=== PATIENT | female | born 1940 | race Caucasian/White ===

== ENCOUNTER → 2017-04-27 | Outpatient (CLI) | payer MEDICARE, BC ==
--- NOTE | 2017-04-28 11:30 | MM ---
Reason for exam: screening (asymptomatic). Last mammogram was performed 4 years and 1 month ago. History: Patient is postmenopausal, has history of bilateral breast cancer at age 41, and history of other cancer. Benign excisional biopsy of the left breast. Physical Findings: A clinical breast exam by your physician is recommended on an annual basis and results should be correlated with mammographic findings. MG 3D Screening Mammo W/Cad Bilateral CC and MLO view(s) were taken. Prior study comparison: March 27, 2013, mammogram, performed at [facility]. March 03, 2011, mammogram, performed at [facility]. The breast tissue is heterogeneously dense. This may lower the sensitivity of mammography. There is a 9mm mass of lower inner quadrant left breast and adjacent 4mm mass. Further work up needed. ASSESSMENT: Incomplete: need additional imaging evaluation, BI-RAD 0 RECOMMENDATION: Special view mammogram of the left breast. If lesion persists on supplemental views, image directed ultrasound is recommended. [facility] will attempt to contact patient to return for supplemental views and ultrasound if indicated.
== END | disposition home or self-care (01) ==
LOC: RADMAMWWP 15:45
PROVIDERS: ATTEND Family Medicine
DX: Z12.31 Encounter for screening mammogram for malignant neoplasm of breast (principal)
CPT/HCPCS: 77063; G0202

== ENCOUNTER → 2017-05-04 | Outpatient (CLI) | payer MEDICARE, BC ==
--- NOTE | 2017-05-05 08:32 | MM ---
Reason for exam: additional evaluation requested from abnormal screening. Last mammogram was performed less than 1 month ago. History: Patient is postmenopausal, has history of bilateral breast cancer at age 41, and history of other cancer. Lumpectomy of the right breast, 1980. Benign excisional biopsy of the left breast. Physical Findings: Nurse did not find any significant physical abnormalities on exam. MG 3D Work Up W/Cad LT Spot compression CC, spot compression MLO, and LM view(s) were taken of the left breast. Prior study comparison: April 27, 2017, bilateral MG 3d screening mammo w/cad. March 27, 2013, mammogram, performed at [facility]. The breast tissue is heterogeneously dense. This may lower the sensitivity of mammography. Abnormality appears as fibroglandular tissue on additional views. Precautionary ultrasound was performed in lower inner quadrant on left breast. These results were verbally communicated with the patient and result sheet given to the patient on 05/04/17. ASSESSMENT: Incomplete: need additional imaging evaluation, BI-RAD 0 RECOMMENDATION: Ultrasound of the left breast. (2cm from nipple)
--- NOTE | 2017-05-05 08:45 | USB ---
Reason for exam: additional evaluation requested from abnormal screening. History: Patient is postmenopausal, has history of bilateral breast cancer at age 41, and history of other cancer. Lumpectomy of the right breast, 1980. Benign excisional biopsy of the left breast. US Breast Workup Limited LT Left breast ultrasound demonstrates no cystic or solid lesion seen. No sonographic cystic or solid mass. No suspicious abnormality. These results were verbally communicated with the patient and result sheet given to the patient on 05/04/17. ASSESSMENT: Negative, BI-RAD 1 RECOMMENDATION: Return to routine screening mammogram schedule for both breasts.
== END | disposition home or self-care (01) ==
LOC: RADMAMWWP 12:51
PROVIDERS: ATTEND Family Medicine
DX: R92.8 Other abnormal and inconclusive findings on diagnostic imaging of breast (principal)
CPT/HCPCS: 76642; G0206; G0279

== ENCOUNTER → 2017-05-18 | Outpatient (CLI) | payer MEDICARE, BC ==
[2017-05-18 19:09] LABS: Basophils % (A) 0 %; CHCM 34.4; Eosinophils # (A) 0.2 k/uL (0-0.7); Eosinophils % (A) 4 %; HCT 41.4 % (34.0-46.0); HDW 2.48; HGB 14.3 gm/dL (11.4-16.0); Luc # (Auto) 0.08; Luc % (Auto) 1; Lymphocytes # (A) 1.3 k/uL (1.0-4.8); Lymphocytes % (A) 20 %; MCH 31.3 pg (25.0-35.0); MCHC 34.5 g/dL (31.0-37.0); MCV 90.7 fL (80.0-100.0); Mean Platelet Volume 7.3; Monocytes # (A) 0.5 k/uL (0-1.0); Monocytes % (A) 7 %; Neutrophils # (A) 4.3 k/uL (1.3-7.7); Neutrophils % (A) 68 %; RBC 4.57 m/uL (3.80-5.40); RDW 12.6 % (11.5-15.5); WBC 6.3 k/uL (3.8-10.6); WBC (Perox) 6.82
[2017-05-18 19:14] LABS: ALT 54 U/L (9-52); AST 36 U/L (14-36); Alkaline Phosphatase 77 U/L (38-126); Anion Gap 12 mmol/L; Blood Urea Nitrogen 25 mg/dL (7-17); Calcium 9.9 mg/dL (8.4-10.2); Carbon Dioxide 21 mmol/L (22-30); Chloride 105 mmol/L (98-107); Cholesterol 213 mg/dL (<200); Glucose 94 mg/dL (74-99); HDL Cholesterol 102 mg/dL (40-60); Non-African American GFR(MDRD) >60 (>60 ml/min/1.73 sqM); Potassium 4.2 mmol/L (3.5-5.1); Sodium 138 mmol/L (137-145); Total Bilirubin 0.6 mg/dL (0.2-1.3); Total Protein 6.9 g/dL (6.3-8.2)
== END ==
LOC: MMGSC 15:00
PROVIDERS: ATTEND Family Medicine
DX: M79.7 Fibromyalgia (principal)
CPT/HCPCS: 36415; 80053; 80061; 84439; 84443; 85025

== ENCOUNTER 2017-07-12 08:36 | Day surgery (SDC) | payer MEDICARE, BC ==
[2017-07-11 12:02] VITALS: BMI 26.9
[~2017-07-12 08:36] MED LIST: LACTATED RINGERS 1,000 ML IV SCH; LIDOCAINE 1% 20 ML VIAL (10MG/ML) FOR IV START INTRADERMA PRN
[2017-07-12 09:31] VITALS: TEMP 97.9
[2017-07-12] MEDS ORDERED: LIDOCAINE 1% INJ 10MG/ML (20 ML MDV) ONE (09:52)
[2017-07-12] MEDS ORDERED: PROPOFOL 10 MG/ML 20 ML VIAL IV ONE (09:52)
--- NOTE | 2017-07-12 10:18 | P.PCN ---
Date of Procedure: 07/12/17 Procedure(s) Performed: Procedure: Total colonoscopy. Preoperative diagnosis: Screening for neoplasia, patient has history of polyps. Postoperative diagnosis: Sigmoid diverticulosis with no evidence of acute diverticulitis, strictures, polyps or cancer. Preparation: HalfLytely prep. Sedation: Was provided by anesthesia. Brief clinical history: The patient is a 77-year-old female who is referred for this evaluation for screening for neoplasia age being her risk factor as well as history of polyps. There is no family history of colon cancer. The patient has no abdominal complaints, bleeding or anemia. Her last colonoscopy was around 6 years ago. Procedure: With the patient on her left lateral decubitus position and after informed consent and adequate sedation, the perianal area was inspected and it did not show any fissures or fistulas. There were no masses felt on digital rectal examination. The Olympus CFQ 160L video colonoscope was then inserted in the rectum in the usual fashion and advanced to the cecum. The mucosa appeared healthy. There were multiple diverticular orifices seen scattered in the sigmoid with no evidence of acute diverticulitis or strictures. No polyps or tumors were seen. I retroflexed the endoscope in the rectum before the endoscope was withdrawn. The patient tolerated the procedure well. Plan: The patient was reassured. Discussed dietary measures. She'll follow-up with you as planned. I recommended a repeat exam in 5 years depending on her overall health at that time.
[2017-07-12 10:21] VITALS: PULSE 79; RESP 16
[2017-07-12 10:54] VITALS: BP 151/72
== END 2017-07-12 11:27 | disposition home or self-care (01) ==
LOC: ORWHC2ENDO 08:36
DX: Z12.11 Encounter for screening for malignant neoplasm of colon (principal); Z86.010 Personal history of colon polyps; K57.30 Diverticulosis of large intestine without perforation or abscess without bleeding; E07.9 Disorder of thyroid, unspecified; Z85.3 Personal history of malignant neoplasm of breast; C67.9 Malignant neoplasm of bladder, unspecified; M79.7 Fibromyalgia; G62.9 Polyneuropathy, unspecified; Z79.899 Other long term (current) drug therapy; Z79.51 Long term (current) use of inhaled steroids
CPT/HCPCS: J2001; J2704; G0105

== ENCOUNTER → 2017-07-25 | Outpatient (CLI) | payer MEDICARE, BC | END | disposition home or self-care (01) | LOC: MMGSC 15:23 | PROVIDERS: ATTEND Family Medicine | DX: E03.9 Hypothyroidism, unspecified (principal) | CPT/HCPCS: 36415; 84439; 84443 ==

== ENCOUNTER → 2018-02-14 | Outpatient (CLI) | payer MEDICARE, BC ==
--- NOTE | 2018-02-22 09:34 | P.ARTDOP ---
Arterial Doppler LOWER EXTREMITY ARTERIAL DOPPLER: DATE OF SERVICE: 02/14/2018 Reason for study: Bilateral leg pain. Doppler waveforms: Multiphasic bilaterally throughout. Pulse volume recording: []. Pressure gradients: None. Ankle-brachial indices: Greater than 1 bilaterally. Toe pressures: [] on the right, [] on the left Impression: Normal study.
== END | disposition home or self-care (01) ==
LOC: RADUSWWP 11:48
PROVIDERS: ATTEND Family Medicine
DX: R23.0 Cyanosis (principal); M79.661 Pain in right lower leg; M79.662 Pain in left lower leg
CPT/HCPCS: 93922

== ENCOUNTER → 2018-04-24 | Outpatient (CLI) | payer MEDICARE, BC ==
--- NOTE | 2018-04-24 15:23 | MR ---
MRI CERVICAL SPINE: CLINICAL HISTORY: Neck pain (M 54.2) per order. Headache and neck pain for years causing pain or weak ness into both arms and fingers per patient. TECHNIQUE: Multiplanar, multisequence imaging of the cervical spine is performed without IV contrast. COMPARISON: None. FINDINGS: Exam is noted suboptimal as is degraded by patient motion artifact. There is levoconvex sco liosis centered in the upper thoracic spine on coronal images. Sagittal images of the cervical spine show the craniocervical junction to appear within normal limits. The cervical and upper thoracic spi nal cord is normal in course, caliber, and signal. The vertebral body heights are normal. Small Schmo rl node superior C7 endplate is seen. There is mild disc space narrowing C4-C5 and C5-C6 levels. Post erior disc herniation noted C5-C6 level on sagittal image 8. Mild to moderate multilevel anterior spu rring is present The bone marrow signal intensity shows overall heterogeneity. Axial images show the C2-C3 level to appear within normal limits. Axial images at C3-C4 level show uncovertebral facet degenerative changes bilaterally contributing to mild right greater than left bilateral neural foraminal narrowing. Axial images at the C4-C5 level show broad-based central disc protrusion mildly effacing anterior the joshua sac with uncovertebral facet degenerative changes causing moderate to severe left and mild right- sided neural foraminal narrowing. Axial images at the C5-C6 level show broad-based right paracentral disc protrusion axial image 22 eff acing anterolateral thecal sac nearly up to ventral surface of spinal cord with uncovertebral facet d egenerative changes bilaterally causing moderate left and moderate to advanced right-sided neural for aminal narrowing. Axial images at the C6-C7 and C7-T1 levels are felt within normal limits. IMPRESSION: Scoliosis and multilevel degenerative changes most prominent C5-C6 level as detailed jacey swift
== END | disposition home or self-care (01) ==
LOC: RADMRIMAIN 14:38
PROVIDERS: ATTEND Family Medicine
DX: M47.812 Spondylosis without myelopathy or radiculopathy, cervical region (principal); M41.82 Other forms of scoliosis, cervical region
CPT/HCPCS: 72141

== ENCOUNTER → 2018-07-24 | Outpatient (CLI) | payer MEDICARE, BC ==
--- NOTE | 2018-07-25 13:16 | MM ---
Reason for exam: screening (asymptomatic). Last mammogram was performed 1 year and 3 months ago. History: Patient is postmenopausal, has history of bilateral breast cancer at age 41, and history of other cancer. Lumpectomy of the right breast, 1980. Benign excisional biopsy of the left breast. Physical Findings: A clinical breast exam by your physician is recommended on an annual basis and results should be correlated with mammographic findings. MG 3D Screening Mammo W/Cad Bilateral CC and MLO view(s) were taken. Prior study comparison: May 04, 2017, left breast MG 3d work up w/cad LT. April 27, 2017, bilateral MG 3d screening mammo w/cad. The breast tissue is heterogeneously dense. This may lower the sensitivity of mammography. No suspicious abnormality. Left post surgical change. No significant changes when compared with prior studies. ASSESSMENT: Benign, BI-RAD 2 RECOMMENDATION: Routine screening mammogram of both breasts in 1 year. Supplementation with annual high risk screening MRI is recommended in this BRCA positive patient.
== END ==
LOC: RADMAMWWP 16:42
PROVIDERS: ATTEND Family Medicine
DX: Z12.31 Encounter for screening mammogram for malignant neoplasm of breast (principal)
CPT/HCPCS: 77063; 77067

== ENCOUNTER 2018-10-31 08:38 | Day surgery (SDC) | payer MEDICARE, BC ==
[2018-10-26 16:19] VITALS: BMI 28.0
[~2018-10-31 08:38] MED LIST changes: -LIDOCAINE 1% 20 ML VIAL (10MG/ML) FOR IV START INTRADERMA PRN
[2018-10-31 09:04] VITALS: TEMP 97
[2018-10-31] MEDS ORDERED: PROPOFOL 10 MG/ML 20 ML VIAL IV ONE (09:14)
[2018-10-31] MEDS ORDERED: LIDOCAINE 1% INJ 10MG/ML (20 ML MDV) ONE (09:14)
[2018-10-31 09:42] VITALS: RESP 16
--- NOTE | 2018-10-31 09:46 | P.PCN ---
Date of Procedure: 10/31/18 Procedure(s) Performed: Procedure: Esophagogastroduodenoscopy and biopsy. Preoperative diagnosis: Gastroesophageal reflux disease. Postoperative diagnosis: 1. Hiatal hernia and LA grade B distal esophagitis. 2. Antral gastritis. 3. Biopsies obtained from the duodenum, antrum and esophagus. Preparation and sedation: Was provided by anesthesia. Brief clinical history: The patient is a 78-year-old female with chronic reflux symptoms and history of hiatal hernia. The patient has been taking Tums on as- needed basis. She started to have significant reflux and dysphagia around 2 months ago. She was started on omeprazole. Her heartburn has improved but she still feels that she can't eat a full meal or drink a lot of fluid. No stool during a recent pneumonia. This evaluation is to assess for complicated reflux disease or other pathology. Procedure: With the patient on her left lateral decubitus position and after informed consent and adequate sedation, I passed the Olympus-GIF H 190 video upper endoscope through the cricopharyngeus down the esophagus. GE junction was around 36 cm from the incisors and there was a 2-3 cm sliding hiatal hernia. At the level of the GE junction there was a wide B ring, and the distal esophagus showed broad erosion consistent with LA grade B distal esophagitis. No Alonso's esophagus, mucosal tears or bleeding. The endoscope was then passed into the stomach which was insufflated with air and inspected in detail including the retroflex view in the cardia. There was mottling, erythema and edema in the antrum and multiple erosions and small ulcerations but no bleeding or gastric outlet obstruction. Pyloric channel, duodenal bulb, post bulbar area and descending duodenum appeared within normal limits. I obtained biopsies from the duodenum, antrum and esophagus then the endoscope was withdrawn. The patient tolerated the procedure well. Plan: The patient was reassured. Discussed dietary measures. She will continue with the acid suppressive therapy. Further plans can be made based on her course. With the finding of hiatal hernia and her need for antacids for a long time in the past, it is likely that she would need some acid suppressive therapy long-term after the healing of her esophagitis and that could be accomplished with H2 blockers as well. I would be happy to see her in the future if needed. She will follow-up with you as planned.
[2018-10-31 09:56] VITALS: BP 152/75; PULSE 70
== END 2018-10-31 10:27 | disposition home or self-care (01) ==
LOC: ORWHC2ENDO 08:38
DX: K44.9 Diaphragmatic hernia without obstruction or gangrene (principal); K22.10 Ulcer of esophagus without bleeding; K29.50 Unspecified chronic gastritis without bleeding
CPT/HCPCS: 43239; 88305; 88312; J2001; J2704

== ENCOUNTER → 2020-02-19 | Outpatient (CLI) | payer MEDICARE, BC ==
--- NOTE | 2020-02-21 10:41 | MM ---
Reason for exam: screening (asymptomatic). Last mammogram was performed 1 year and 7 months ago. History: Patient is postmenopausal, has history of bilateral breast cancer at age 41, and history of other cancer. Lumpectomy of the right breast, 1980. Benign excisional biopsy of the left breast. Physical Findings: A clinical breast exam by your physician is recommended on an annual basis and results should be correlated with mammographic findings. MG 3D Screening Mammo W/Cad Bilateral CC and MLO view(s) were taken. Prior study comparison: July 24, 2018, bilateral MG 3d screening mammo w/cad. May 04, 2017, left breast MG 3d work up w/cad LT. The breast tissue is heterogeneously dense. This may lower the sensitivity of mammography. There is chronic nodularity bilaterally, apparent on the 3D images. No significant changes when compared with prior studies. ASSESSMENT: Benign, BI-RAD 2 RECOMMENDATION: Routine screening mammogram of both breasts in 1 year.
== END | disposition home or self-care (01) ==
LOC: RADMAMWWP 15:00
PROVIDERS: ATTEND Family Medicine
DX: Z12.31 Encounter for screening mammogram for malignant neoplasm of breast (principal)
CPT/HCPCS: 77063; 77067

== ENCOUNTER → 2020-02-22 | Outpatient (CLI) | payer MEDICARE, BC ==
--- NOTE | 2020-02-22 11:49 | FL ---
EXAMINATION TYPE: FL barium swallow DATE OF EXAM: 02/22/2020 COMPARISON: None HISTORY: Dysphasia TECHNIQUE: A double air contrast UGI study is performed. FINDINGS: Contrast passes through the esophagus without intraluminal or extramural defect. A few tertiary contr actions were evident during the exam. Contrast passes through the gastroesophageal junction without h esitancy or stenosis. A self reducing small sliding type hiatal hernia is evident. Schatzki's ring is evident above the gas troesophageal junction. Couple of tertiary contractions are evident. Fluoroscopy time: 47 Images: 31 IMPRESSIONS: 1. Mild presbyesophagus. 2. Small self reducing sliding type hiatal hernia.
== END | disposition home or self-care (01) ==
LOC: RADUSWWP 11:02
PROVIDERS: ATTEND Internal Medicine Rheumatology
DX: K22.8 Other specified diseases of esophagus (principal); K44.9 Diaphragmatic hernia without obstruction or gangrene
CPT/HCPCS: 74220

== ENCOUNTER → 2020-02-22 | Outpatient (CLI) | payer MEDICARE, BC ==
--- NOTE | 2020-02-22 15:56 | MR ---
EXAMINATION TYPE: MR knee RT wo con DATE OF EXAM: 02/22/2020 COMPARISON: Plain film 01/22/2020 HISTORY: Right knee pain TECHNIQUE: Multiplanar, multisequence imaging of the right knee is performed without IV contrast. FINDINGS: MEDIAL MENISCUS: Posterior horn of the medial meniscus shows linear increased signal at the undersurf alexa extending to the articular surface. Possible meniscal cyst present medially in the inferior marsha n. Posterior horn of the medial meniscus shows an irregular appearance. It appears somewhat attenuate d. LATERAL MENISCUS: Anterior horn of the lateral meniscus shows some abnormal intrinsic signal, some li near signal may extend to the articular surface, sagittal image 23, the meniscus is attenuated. CRUCIATE LIGAMENTS: The anterior and posterior cruciate ligaments are intact and unremarkable. COLLATERAL LIGAMENTS: The medial collateral ligament and lateral collateral ligament complex are inta ct and unremarkable. EXTENSOR MECHANISM: Visualized quadriceps and patellar tendons are intact. EFFUSION: Minimal suprapatellar joint effusion POPLITEAL CYST: Semimembranosus gastrocnemius cyst is present with minimal internal septation, exten jazlyn along the musculature, focus measures approximately 5.1 x 1.5 x 0.9 cm and extends laterally fro m its origin TRICOMPARTMENT SPACES: There is joint space loss in the medial compartment, somewhat within the later al compartment CARTILAGE: Focus of grade 3 to grade IV chondromalacia present at the posterior patella superiorly. G rade 3 to grade IV chondromalacia present in the medial compartment, grade 2 to grade III chondromala efren suspected laterally BONE MARROW SIGNAL: Some probable reactive marrow signal changes within the proximal tibia and along the medial femoral metaphysis OTHER: Subcutaneous edema changes present. There is some marginal spurring present in the medial lat eral compartments IMPRESSION: Osteoarthritis. Tear the posterior horn the medial meniscus, possibly anterior horn lateral meniscus. Iverson's cyst. Additional findings above.
== END | disposition home or self-care (01) ==
LOC: RADMRIMAIN 14:05
PROVIDERS: ATTEND Orthopaedic Surgery
DX: M17.11 Unilateral primary osteoarthritis, right knee (principal); S83.241A Other tear of medial meniscus, current injury, right knee, initial encounter; M71.21 Synovial cyst of popliteal space [Baker], right knee; M22.41 Chondromalacia patellae, right knee; M25.861 Other specified joint disorders, right knee
CPT/HCPCS: 74220

== ENCOUNTER → 2020-04-04 | Outpatient (CLI) | payer MEDICARE, BC ==
[2020-04-04 14:41] LABS: HCT 37.4 % (34.0-46.0); MCH 29.6 pg (25.0-35.0); MCHC 32.1 g/dL (31.0-37.0); Platelet Count 276 k/uL (150-450); RBC 4.07 m/uL (3.80-5.40); RDW 13.8 % (11.5-15.5)
[2020-04-04 14:50] LABS: Potassium 4.3 mmol/L (3.5-5.1)
== END | disposition home or self-care (01) ==
LOC: LABPAT 13:44
PROVIDERS: ATTEND Orthopaedic Surgery
DX: Z01.818 Encounter for other preprocedural examination (principal); Z01.810 Encounter for preprocedural cardiovascular examination; M23.91 Unspecified internal derangement of right knee
CPT/HCPCS: 80051; 85027; 93005

== ENCOUNTER 2020-04-09 08:53 | Day surgery (SDC) | payer MEDICARE, BC ==
[2020-04-03 14:06] VITALS: BMI 27.3
--- NOTE | 2020-04-08 15:25 | HP ---
HISTORY AND PHYSICAL DATE OF SURGERY: 04/09/2020 Caitlin Conroy is a 80-year-old patient seen with progressive right knee pain. We discussed options for treatment. She elected to proceed with right knee arthroscopy. Consent was obtained. PAST MEDICAL HISTORY: Hypothyroidism, hypertension, fibromyalgia. PAST SURGICAL HISTORY: Total knee arthroplasty, breast surgery, bladder surgery. MEDICATIONS: Xanax, tramadol, levothyroxine, Effexor, Dyazide. ALLERGIES: NONE. SOCIAL HISTORY: Denies tobacco use. PHYSICAL EVALUATION OF RIGHT KNEE: Range of motion is zero to 125. Tenderness, medial and lateral joint lines. Positive medial Miko's. Positive lateral Miko's. Ligaments stable. Hip rotation without pain. Distal neurovascular exam intact. RADIOGRAPHS: Right knee radiographs revealed moderate osteoarthritic changes. MRI of the right knee revealed medial meniscal tear and osteoarthritic changes. IMPRESSION: 1. Internal derangement of right knee with medial meniscal tear. 2. Hypertension. 3. Hypothyroidism. PLAN: Right knee arthroscopy with partial meniscectomy, partial synovectomy and debridement. MMODL / IJN: [id number] /
[~2020-04-09 08:53] MED LIST changes: +DEXAMETHASONE SOD PHOSPHATE 10 MG/ML 1 ML VIAL IV ONE; +HYDROmorphone 0.5 MG/0.5 ML SYRINGE IVP PRN; +ONDANSETRON 4 MG/2 ML VIAL IVP ONE
[2020-04-09] MEDS ORDERED: LIDOCAINE 1% (10MG/ML) FOR IV START INTRADERMA ONE (09:20)
[2020-04-09] MEDS ORDERED: ONDANSETRON 4 MG/2 ML VIAL ONE (09:23)
[2020-04-09] MEDS ORDERED: MIDAZOLAM 2 MG/2 ML VIAL ONE (10:05)
[2020-04-09] MEDS ORDERED: LIDOCAINE 1% INJ 10MG/ML (20 ML MDV) ONE (10:05)
[2020-04-09] MEDS ORDERED: SUCCINYLCHOLINE CHLORIDE 100 MG/5 ML SYR IV ONE (10:05)
[2020-04-09] MEDS ORDERED: fentaNYL (PF) 50 MCG/ML 2 ML AMP ONE (10:05)
[2020-04-09] MEDS ORDERED: PROPOFOL 10 MG/ML 20 ML VIAL IV ONE (10:05)
[2020-04-09] MEDS ORDERED: BUPIVACAIN-EPI 0.25%-1:200,000 30 ML VIAL SQ ONE (10:33)
--- NOTE | 2020-04-09 11:10 | P.OP ---
Date of Procedure: 04/09/20 Preoperative Diagnosis: Internal derangement right knee Postoperative Diagnosis: 1. Tear medial meniscus right knee 2. Grade 3/4 chondromalacia medial femoral condyle right knee 3. Reactive synovitis medial, lateral and suprapatellar compartments right knee Procedure(s) Performed: 1. Arthroscopic partial medial meniscectomy right knee 2. Arthroscopic chondroplasty medial femoral condyle right knee 3. Arthroscopic microfracture medial femoral condyle right knee 4. Arthroscopic partial synovectomy medial, lateral and suprapatellar compartments right knee Anesthesia: SHAKIRAA, local Surgeon: Jean-Pierre Reilly Estimated Blood Loss (ml): 5 Pathology: none sent Condition: stable Disposition: PACU Indications for Procedure: 80-year-old patient seen with progressive right knee pain. After treatment options were discussed, she elected to proceed with arthroscopy. Operative Findings: see description of procedure Description of Procedure: Patient was taken to the operative suite. Patient underwent a general anesthetic by the department of anesthesia. Patient was given preoperative antibiotics. The right lower extremity was placed in a well-padded arthroscopic leg harden. The right leg was prepped and draped in the normal sterile orthopedic fashion. A lateral parapatellar and suprapatellar incision was made. Trochars were inserted. Arthroscopy was initiated. Suprapatellar pouch revealed diffuse thick reactive synovitis. The patellofemoral joint appeared to articulate congruently. There was grade 2/3 chondromalacia of the patella with no osteochondral tears present. The scope was guided into the medial gutter. No loose bodies or plica were identified. The scope was then guided into the medial compartment. A medial parapatellar incision was made. Trocar inserted followed by probe. There was a complex tear involving the posterior horn and midbody medial meniscus. There were grade 3/4 chondromalacia changes of the medial femoral condyle with some diffuse osteochondral tears present. There was thick reactive synovitis anteriorly. I performed a partial medial meniscectomy. I performed a chondroplasty of the medial femoral condyle. I performed a partial synovectomy. There was an area of exposed bone weightbearing surface medial femoral condyle. I performed a microfracture to that area penetrating the bone with some bleeding at the microfracture site. The residual osteochondral surface appears stable. The residual meniscus was stable. There was good decompression of the synovitis. Scope and probe were then guided into the intercondylar notch. Cruciates were identified, probed and found to be stable. The scope and probe were then guided into lateral compartment. There was some fraying along the periphery midbody lateral meniscus. There were grade 2 chondromalacia changes of lateral compartment with no osteochondral tears. There was some thick reactive synovitis anteriorly. I debrided that superficial fraying of the meniscus. I performed a partial synovectomy decompressing reactive synovitis. There was good decompression of the synovitis. The scope was in guided back into the suprapatellar compartment. I introduced a motorized shaver into the suprapatellar compartment. I debrided some piecemeal fragments of meniscus I encountered. I performed a partial synovectomy. Shaver was removed. There was good decompression of synovitis. I took one more look on the entire knee, no residual debris. Instruments were now removed from the joint. The joint was infiltrated with .25% Marcaine. Steri-Strips were applied to the portal sites. Sterile dressings were applied. The patient was placed into a PHILIP hose. No tourniquet was utilized. The patient was awakened, transferred to a bed and taken to recovery stable satisfactory condition.
[2020-04-09 11:14] VITALS: TEMP 97
[2020-04-09] MEDS ORDERED: ENALAPRILAT 1.25 MG/ML 1 ML VIAL IVP ONE (11:41)
[2020-04-09 12:49] VITALS: BP 157/77; PULSE 74; RESP 16
== END 2020-04-09 13:33 | disposition home or self-care (01) ==
LOC: OR 08:53
PROVIDERS: ATTEND Orthopaedic Surgery
DX: S83.241A Other tear of medial meniscus, current injury, right knee, initial encounter (principal); X58.XXXA Exposure to other specified factors, initial encounter; M22.41 Chondromalacia patellae, right knee; M65.861 Other synovitis and tenosynovitis, right lower leg; G62.9 Polyneuropathy, unspecified; I10 Essential (primary) hypertension; E03.9 Hypothyroidism, unspecified; R13.10 Dysphagia, unspecified; K44.9 Diaphragmatic hernia without obstruction or gangrene; M79.7 Fibromyalgia; Z91.048 Other nonmedicinal substance allergy status; Z85.51 Personal history of malignant neoplasm of bladder; F41.9 Anxiety disorder, unspecified; F32.9 Major depressive disorder, single episode, unspecified; K08.109 Complete loss of teeth, unspecified cause, unspecified class; Z92.21 Personal history of antineoplastic chemotherapy; Z92.3 Personal history of irradiation; Z85.3 Personal history of malignant neoplasm of breast; Z98.890 Other specified postprocedural states; Z79.891 Long term (current) use of opiate analgesic; Z79.890 Hormone replacement therapy; Z79.899 Other long term (current) drug therapy
CPT/HCPCS: 29881; 29879; 29876; J2250; J0690; J2001; J3010; J0330; J2704

== ENCOUNTER 2020-04-29 15:33 | Emergency (ER) | payer MEDICARE, BC ==
[2020-04-29 15:41] VITALS: BP 160/73; PULSE 79; RESP 17; TEMP 99.4
[2020-04-29] MEDS ORDERED: HYDROcodone/APAP 5-325MG 1 EACH TAB PO STA (16:00)
--- NOTE | 2020-04-29 16:00 | ED ---
General Adult HPI - General Chief complaint: Fall Stated complaint: fall/hip injury Time Seen by Provider: 04/29/20 15:42 Source: patient, family, RN notes reviewed, old records reviewed Mode of arrival: wheelchair Limitations: no limitations - History of Present Illness Initial comments: 80-year-old female patient presents ED for evaluation mechanical fall which occurred last night. Patient reports that she was attempting to swat a spider with a flyswatters when she lost her balance fell on her right side hitting the back of her head against the door. Patient denies a loss of consciousness. Patient chief complaint is right hip pain denies any headache or changes in vision. Denies any blood thinners. Patient also has some pain in her knee whic h she had a scope on about a month ago no hardware replacement. Systemic: Pt denies fatigue, fever/chills, rash. Pt denies weakness, night sweats, weight loss. Neuro: Pt denies headache, visual disturbances, syncope or pre-syncope. HEENT: Pt denies ocular discharge or irritation, otalgia, rhinorrhea, pharyngitis or notable lymphadenopathy. Cardiopulmonary: Pt denies chest pain, SOB, heart palpitations, dyspnea on exertion. Abdominal/GI: Pt denies abdominal pain, n/v/d. : Pt denies dysuria, burning w/ urination, frequency/urgency. Denies new onset urinary or bowel incontinence. MSK: Pt denies myalgia. Neuro: Pt denies new onset weakness, paresthesias. - Related Data Home Medications Medication Instructions Recorded Confirmed Eszopiclone [Lunesta] 3 mg PO HS 07/11/17 04/29/20 Fexofenadine HCl [Katrina Allergy] 180 mg PO DAILY 07/11/17 04/29/20 Fluticasone Nasal [place] [Flonase 2 spray EA NOSTRIL DAILY 07/11/17 04/29/20 Nasal [place]] Levothyroxine Sodium 125 mcg PO DAILY 07/11/17 04/29/20 Montelukast [Singulair] 10 mg PO DAILY 07/11/17 04/29/20 Triamterene/Hydrochlorothiazid 1 each PO DAILY 07/11/17 04/29/20 [Triamterene-Hctz 37.5-25 mg Tb] Venlafaxine HCl ER [Effexor Xr] 37.5 mg PO DAILY 07/11/17 04/29/20 traMADol HCL [Ultram] 50 mg PO TID PRN 07/11/17 04/29/20 Omeprazole [PriLOSEC] 20 mg PO BID 04/29/20 04/29/20 Pramipexole [Mirapex] 0.25 mg PO HS 04/29/20 04/29/20 amLODIPine [Norvasc] 5 mg PO DAILY 04/29/20 04/29/20 Allergies Allergy/AdvReac Type Severity Reaction Status Date / Time No Known Allergies Allergy Verified 04/29/20 16:55 Review of Systems ROS Statement: Those systems with pertinent positive or pertinent negative responses have been documented in the HPI. ROS Other: All systems not noted in ROS Statement are negative. Past Medical History Past Medical History: Cancer, Fibromyalgia, Hypertension, Thyroid Disorder Additional Past Medical History / Comment(s): hx-breast and bladder cancer with chemo. 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 HEENT: NC/AT, trachea midline, neck supple, no lymphadenopathy. Posterior pharynx non erythematous, without exudates. External ears appear normal, without discharge. Mucous membranes moist. Eyes PERRLA, EOM intact. There is no scleral icterus. No pallor noted. Cardiopulmonary: RRR, no murmurs, rubs or gallops, no JVD noted. Lungs CTAB in anterior and posterior alcazar. No peripheral edema. Abdominal exam: Abdomen soft and non-distended. Abdomen non-tender to palpation in all 4 quadrants. Bowel sounds active in LLQ. No hepatosplenomegaly. No ecchymosis Neuro: CN II-XII intact. No nuchal rigidity. No raccon eyes, no miguel sign, no hemotympanum. No cervical spinal tenderness. MSK:right hip mildly tender to palpation. No external skin changes. No posterior calf tenderness bilaterally, homans sign negative bilaterally. Posterior tibialis and radial pulse +2 bilaterally. Sensation intact in upper and lower extremities. Full active ROM in upper and lower extremities, equal strength pt able to bear weight. Limitations: no limitations Course Vital Signs 04/29/20 15:35 Temperature 99.4 F Pulse Rate 79 Respiratory 17 Rate Blood Pressure 160/73 O2 Sat by Pulse 96 Oximetry Medical Decision Making - Medical Decision Making 80-year-old female patient this ED for evaluation mechanical fall last night hit her head on the way down no loss of consciousness. Landed on her right hip. Patient days of pain in the right hip primarily. She reports that she is having some pain in the right knee Denies any other acute complaints. Patient vital signs are stable, afebrile. Plain films of display any acute process. Patient will be discharged to follow up with primary care provider and orthopedist and will return to ER if any worsening symptoms. Case discussed with Dr. Baird. Disposition Clinical Impression: Fall Disposition: HOME SELF-CARE Condition: Stable Instructions (If sedation given, give patient instructions): Fall Prevention (ED) Additional Instructions: follow-up with primary care provider and orthopedist tomorrow. Recommend using your walker to avoid future falls. Return to ER if any worsening symptoms. Is patient prescribed a controlled substance at d/c from ED?: No Referrals: Princess Lackey MD [Primary Care Provider] - 1-2 days Jean-Pierre Reilly DO [Doctor of Osteopathic Medicine] - 1-2 days
--- NOTE | 2020-04-29 16:27 | XR ---
EXAMINATION TYPE: XR Hip RT and AP Pelvis DATE OF EXAM: 04/29/2020 COMPARISON: NONE HISTORY: Fall injury with pelvic and right hip pain. TECHNIQUE: A single AP view of the pelvis is obtained. Two views of the right hip are obtained. FINDINGS: There is no acute fracture/dislocation evident in the pelvis. The sacroiliac joints appea r symmetric and thought within normal limits. Pubic symphysis is intact. Moderate axial joint space loss in left hip with mild acetabular spurring The overlying soft tissue appears unremarkable. Two views of right hip show no acute fracture or dislocation. Metallic artifact from total right hip arthroplasty is satisfactory in position. Overlying cerclage wire and metallic anchor right intertro chanteric level. IMPRESSION: There is no acute fracture or dislocation in the pelvis or right hip prosthesis.
--- NOTE | 2020-04-29 16:29 | XR ---
EXAMINATION TYPE: XR femur RT DATE OF EXAM: 04/29/2020 CLINICAL HISTORY: Pain after fall injury. TECHNIQUE: Two views of the right femur are obtained. COMPARISON: None FINDINGS: Osseous structures somewhat demineralized. There is no acute fracture or dislocation seen i n the right femur. Metallic artifact from right hip arthroplasty satisfactory in position. Right knee joint shows moderate tricompartment joint space loss with mild patellofemoral compartment spurring. Mild to moderate diffuse subcutaneous edema is present. IMPRESSION: There is no acute fracture or dislocation in the right femur.
--- NOTE | 2020-04-29 16:34 | XR ---
EXAMINATION TYPE: XR knee 4V RT DATE OF EXAM: 04/29/2020 CLINICAL HISTORY: Pain after fall injury. TECHNIQUE: Three views of the right knee are obtained. Fourth sunrise view. COMPARISON: None. FINDINGS: There is no acute fracture/dislocation evident in right knee. Moderate to severe narrowing medial tibiofemoral compartment. More mild to moderate narrowing patellofemoral and lateral tibiofem oral compartments. Mild spurring patellofemoral compartment. Patellar articulation satisfactory on th e sunrise view. Mild to moderate diffuse subcutaneous edema. IMPRESSION: There is no acute fracture or dislocation in the right knee.
--- NOTE | 2020-04-29 16:50 | CT ---
EXAMINATION TYPE: CT brain aquilino [place]zon DATE OF EXAM: 04/29/2020 COMPARISON: NONE HISTORY: Fall with injury headache and neck pain. CT DLP: 1467.4 mGycm. Automated Exposure Control for Dose Reduction was Utilized. TECHNIQUE: CT scan of the head and cervical spine are performed without contrast. FINDINGS: Extensive low right cerebellar surgery with streak artifact limiting evaluation at this l evel. There is no obvious acute intracranial hemorrhage or midline shift identified. The ventricles and sulci are within normal limits in size. Some low attenuation in the periventricular white matter is present. The globes are intact and the visualized sinuses are clear. Cervical spine is visualized in its entirety from C1 through upper thoracic levels and demonstrates l evoconvex scoliosis centered upper thoracic spine without evidence of acute fracture or dislocation. Prevertebral soft tissue appears within normal limits. The C1-C2 articulation is within normal limi ts on the coronal images. Vertebral body heights are maintained. Slight grade 1 retrolisthesis C5 on C6 and grade 1 anterolisthesis C3 on C4 and C7 on T1 on sagittal images. Moderate disc space narrowin g and spurring C4-C5 through C6-C7 levels. Posterior spur disc complexes efface the anterior thecal s ac at these levels greatest at C5-C6 level where there is right paracentral involvement confirmed nex t image 66. Axial images also show multilevel uncovertebral facet degenerative changes bilaterally co ntributing to multilevel neural foraminal narrowing. Somewhat small size thyroid gland is present. Judith ng apices show no pneumothorax. Right-sided neck metallic wire noted. IMPRESSION: 1. There is no acute fracture or dislocation evident in the cervical spine. 2. No acute intracranial hemorrhage or midline shift is seen.
== END 2020-04-29 17:55 | disposition home or self-care (01) ==
LOC: EC 15:33
DX: M25.551 Pain in right hip (principal); M25.561 Pain in right knee; E07.9 Disorder of thyroid, unspecified; F41.9 Anxiety disorder, unspecified; F32.9 Major depressive disorder, single episode, unspecified; M79.7 Fibromyalgia; Z79.899 Other long term (current) drug therapy; Z79.51 Long term (current) use of inhaled steroids; Z79.890 Hormone replacement therapy; Z96.652 Presence of left artificial knee joint; Z96.641 Presence of right artificial hip joint; W18.09XA Striking against other object with subsequent fall, initial encounter; Z85.3 Personal history of malignant neoplasm of breast; Z85.51 Personal history of malignant neoplasm of bladder
CPT/HCPCS: 70450; 72125; 73502; 99284

== ENCOUNTER 2020-08-03 19:56 | Emergency (ER) | payer MEDICARE ==
[2020-08-03 20:04] VITALS: TEMP 98.6
--- NOTE | 2020-08-03 20:28 | ED ---
Fall HPI - General Chief Complaint: Fall Stated Complaint: Fall Time Seen by Provider: 08/03/20 20:03 Source: patient, EMS, RN notes reviewed, old records reviewed Mode of arrival: EMS - History of Present Illness Initial Comments: This is a 80-year-old female status post fall trip and fall some significant head swelling. Unsure about events surrounding injury. Mechanical in nature, patient denying any lightheadedness dizziness chest pain abdominal pain. No change in medications, denies any other symptoms aside from the headache and she did hit her head when she fell MD Complaint: fall -: hour(s) Fall From: standing When Fall Occurred: 1 hour [employer] Fall Witnessed: no Place Fall Occurred: home Loss of Consciousness: none Prolonged Down Time?: no Symptoms Prior to Fall: none Location: head Severity: moderate Severity scale (1-10): 4 Quality: aching Context: tripped/slipped Associated Symptoms: denies - Related Data Home Medications Medication Instructions Recorded Confirmed Eszopiclone [Lunesta] 3 mg PO HS 07/11/17 04/29/20 Fexofenadine HCl [Katrina Allergy] 180 mg PO DAILY 07/11/17 04/29/20 Fluticasone Nasal [place] [Flonase 2 spray EA NOSTRIL DAILY 07/11/17 04/29/20 Nasal [place]] Levothyroxine Sodium 125 mcg PO DAILY 07/11/17 04/29/20 Montelukast [Singulair] 10 mg PO DAILY 07/11/17 04/29/20 Triamterene/Hydrochlorothiazid 1 each PO DAILY 07/11/17 04/29/20 [Triamterene-Hctz 37.5-25 mg Tb] Venlafaxine HCl ER [Effexor Xr] 37.5 mg PO DAILY 07/11/17 04/29/20 traMADol HCL [Ultram] 50 mg PO TID PRN 07/11/17 04/29/20 Omeprazole [PriLOSEC] 20 mg PO BID 04/29/20 04/29/20 Pramipexole [Mirapex] 0.25 mg PO HS 04/29/20 04/29/20 amLODIPine [Norvasc] 5 mg PO DAILY 04/29/20 04/29/20 Allergies Allergy/AdvReac Type Severity Reaction Status Date / Time No Known Allergies Allergy Verified 04/29/20 16:55 Review of Systems ROS Statement: Those systems with pertinent positive or pertinent negative responses have been documented in the HPI. ROS Other: All systems not noted in ROS Statement are negative. Past Medical History Past Medical History: Cancer, Fibromyalgia, Hypertension, Thyroid Disorder Additional Past Medical History / Comment(s): hx-breast and bladder cancer with chemo. 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 Absent: atraumatic (scalp hematoma) Eye exam: Present: normal appearance, PERRL, EOMI. Absent: scleral icterus, conjunctival injection, periorbital swelling ENT exam: Present: normal exam, mucous membranes moist Neck exam: Present: normal inspection. Absent: tenderness, meningismus, lymphadenopathy Respiratory exam: Present: normal lung sounds bilaterally. Absent: respiratory distress, wheezes, rales, rhonchi, stridor Cardiovascular Exam: Present: regular rate, normal rhythm, normal heart sounds. Absent: systolic murmur, diastolic murmur, rubs, gallop, clicks GI/Abdominal exam: Present: soft, normal bowel sounds. Absent: distended, tenderness, guarding, rebound, rigid Extremities exam: Present: normal inspection, full ROM, normal capillary refill. Absent: tenderness, pedal edema, joint swelling, calf tenderness Back exam: Present: normal inspection Neurological exam: Present: alert, oriented X3, CN II-XII intact Psychiatric exam: Present: normal affect, normal mood Skin exam: Present: warm, dry, intact, normal color. Absent: rash Course Vital Signs 08/03/20 08/03/20 19:58 21:38 Temperature 98.6 F Pulse Rate 81 83 Respiratory 16 18 Rate Blood Pressure 159/72 135/79 O2 Sat by Pulse 98 98 Oximetry - Reevaluation(s) Reevaluation #1: Medical records reviewed No real significant improvement here in the emergency department Patient informed results and questions answered Medical Decision Making - Medical Decision Making 31 female mechanical fall no significant somatic injury noted here in the ER patient can be discharged home - Radiology Data Radiology results: report reviewed (CT brain C-spine negative for acute disease), image reviewed Disposition Clinical Impression: Fall, Scalp hematoma Disposition: HOME SELF-CARE Condition: Good Instructions (If sedation given, give patient instructions): Fall Prevention for Older Adults (ED), Hematoma (ED) Is patient prescribed a controlled substance at d/c from ED?: No Referrals: Princess Lackey MD [Primary Care Provider] - 1-2 days
--- NOTE | 2020-08-03 21:01 | XR ---
EXAMINATION TYPE: XR pelvis AP view DATE OF EXAM: 08/03/2020 COMPARISON: NONE HISTORY: Fall. Pain. TECHNIQUE: Single view FINDINGS: Pelvic ring is intact. There is right hip prosthesis. Components appear in anatomic positio n. Sacroiliac joints are intact. IMPRESSION: Negative pelvis exam. No fracture seen.
--- NOTE | 2020-08-03 21:02 | XR ---
EXAMINATION TYPE: XR chest 1V DATE OF EXAM: 08/03/2020 COMPARISON: NONE HISTORY: Fall. Pain. TECHNIQUE: FINDINGS: Heart is normal. Lungs are clear of infiltrate. There is no heart failure. There is no pleu ral effusion. Bony thorax is intact. IMPRESSION: No active cardiopulmonary disease.
--- NOTE | 2020-08-03 21:06 | CT ---
EXAMINATION TYPE: CT brain cspine wo con DATE OF EXAM: 08/03/2020 COMPARISON: 04/29/2020 HISTORY: Fall, hx of brain surgery x2 for malformation/malfunction. CT DLP: 1402.8 mGycm Automated exposure control for dose reduction was used. Ventricles have normal size. There is no mass effect nor midline shift. There is no evidence of intra cranial hemorrhage. There is metal artifact from implant in the right temporal bone. There is no hydr ocephalus. There is left posterior parietal scalp hematoma that measures 1.5 cm in thickness. There i s no evidence of a skull fracture. The cervical vertebra have normal alignment. There is degenerative disc space narrowing from C4 to C7 with spurring of the endplates. The posterior elements are intact. There is multilevel cervical hype rtrophic facet arthropathy. I see no bony destructive process. IMPRESSION: Multilevel cervical spondylotic changes. No fracture. No change. No acute intracranial abnormality. Previous right side mastoid surgery and implant. Brain unchanged c ompared to old exam. Left posterior parietal occipital scalp hematoma.
[2020-08-03 21:39] VITALS: BP 135/79; PULSE 83; RESP 18
== END 2020-08-03 21:48 | disposition home or self-care (01) ==
LOC: EC 19:56
DX: S00.03XA Contusion of scalp, initial encounter (principal); E07.9 Disorder of thyroid, unspecified; I10 Essential (primary) hypertension; F41.9 Anxiety disorder, unspecified; F32.9 Major depressive disorder, single episode, unspecified; M79.7 Fibromyalgia; I73.00 Raynaud's syndrome without gangrene; Z79.51 Long term (current) use of inhaled steroids; Z79.899 Other long term (current) drug therapy; Z79.890 Hormone replacement therapy; Z85.51 Personal history of malignant neoplasm of bladder; Z85.3 Personal history of malignant neoplasm of breast; Z96.641 Presence of right artificial hip joint; Z96.652 Presence of left artificial knee joint; W01.0XXA Fall on same level from slipping, tripping and stumbling without subsequent striking against object, initial encounter; Y92.009 Unspecified place in unspecified non-institutional (private) residence as the place of occurrence of the external cause
CPT/HCPCS: 70450; 71045; 72125; 72170; 99284

== ENCOUNTER 2020-09-26 08:14 | Day surgery (SDC) | payer MEDICARE, BC ==
[2020-09-24 14:36] VITALS: BMI 27.7
[~2020-09-26 08:14] MED LIST changes: -DEXAMETHASONE SOD PHOSPHATE 10 MG/ML 1 ML VIAL IV ONE; -HYDROmorphone 0.5 MG/0.5 ML SYRINGE IVP PRN; -ONDANSETRON 4 MG/2 ML VIAL IVP ONE
[2020-09-26] MEDS ORDERED: LIDOCAINE 1% (10MG/ML) FOR IV START INTRADERMA ONE (08:35)
[2020-09-26 08:45] VITALS: TEMP 97.1
[2020-09-26] MEDS ORDERED: LIDOCAINE 1% INJ 10MG/ML (20 ML MDV) ONE (08:46)
[2020-09-26] MEDS ORDERED: PROPOFOL 10 MG/ML 20 ML VIAL IV ONE (08:46)
--- NOTE | 2020-09-26 09:01 | P.PCN ---
Date of Procedure: 09/26/20 Procedure(s) Performed: BRIEF HISTORY: Patient is a [id number], pleasant, white female scheduled for an upper endoscopy as a part of evaluation of intermittent dysphagia to solids for the last 2 years duration. Recent barium esophagogram showed a small hiatal hernia, presbyoesophagus and distal esophageal Schatzki's ring. She is scheduled for an upper endoscopy with possible dilation PROCEDURE PERFORMED: Esophagogastroduodenoscopy with biopsy and dilation . PREOPERATIVE DIAGNOSIS:.intermittent dysphagia to solids of 2 years duration IV sedation per anesthesia. PROCEDURE: After informed consent was obtained, the patient was brought into the endoscopy unit. IV sedation was administered by Anesthesia under continuous monitoring. Initially the Olympus GIF-140 video endoscope was inserted into the mouth. Esophagus intubated without any difficulty. It was gradually advanced into the stomach and duodenum and carefully examined. The bulb and the second part of the duodenum appeared normal. The scope at this time was withdrawn to the stomach, adequately insufflated with air, and upon careful examination, mucosa of the antrum, body, cardia and the fundus appeared normal. The scope was then withdrawn into the esophagus. small sliding type hiatal hernia noted. There was a distal esophageal widely patent Schatzki's ring identified which was dilated using 18-20 mm TTS balloon in a sequential fashion for 60 seconds. There a few erosions in the distal esophagus consistent with LA grade B reflux esophagitis. The GE junction was located at 39 cm from the incisors. The rest of theesophagus appeared normalbiopsies were done from the distal esophagus and the patient tolerated the procedure well. l. IMPRESSION: 1. Distal esophageal Schatzki's ring status post balloon dilation using 18-20 mm TTS balloon as described above. 2. Small sliding type hiatal hernia. 3. LA grade B reflux esophagitis RECOMMENDATIONS: The findings of this examination were discussed with the patient as well as her family. She was advised to be on a liquid diet today. She'll continue with Prilosec 20 mg daily and follow antireflux measures. Her symptoms could be related to esophageal dysmotility and was advised to eat soft foods. She'll be seen in office in 3-4 weeks..
[2020-09-26 09:15] VITALS: BP 149/75; PULSE 66; RESP 17
== END 2020-09-26 09:36 | disposition home or self-care (01) ==
LOC: ORWHC2ENDO 08:14
PROVIDERS: ATTEND Internal Medicine Gastroenterology
DX: K22.2 Esophageal obstruction (principal); K44.9 Diaphragmatic hernia without obstruction or gangrene; K21.00 Gastro-esophageal reflux disease with esophagitis, without bleeding; K22.8 Other specified diseases of esophagus; I10 Essential (primary) hypertension; F41.9 Anxiety disorder, unspecified; F32.9 Major depressive disorder, single episode, unspecified; M79.7 Fibromyalgia; E07.9 Disorder of thyroid, unspecified; Z79.890 Hormone replacement therapy; Z79.899 Other long term (current) drug therapy
CPT/HCPCS: 88305; 43239; 43249; J2001; J2704; C1726

== ENCOUNTER → 2021-04-03 | Outpatient (CLI) | payer MEDICARE, BC ==
--- NOTE | 2021-04-06 14:10 | MM ---
Reason for exam: screening (asymptomatic). Last mammogram was performed 1 year and 1 month ago. History: Patient is postmenopausal, has history of bilateral breast cancer at age 41, and history of other cancer. Lumpectomy of the right breast, 1980. Benign excisional biopsy of the left breast. Physical Findings: A clinical breast exam by your physician is recommended on an annual basis and results should be correlated with mammographic findings. MG 3D Screening Mammo W/Cad Bilateral CC and MLO view(s) were taken. Prior study comparison: February 19, 2020, bilateral MG 3d screening mammo w/cad. July 24, 2018, bilateral MG 3d screening mammo w/cad. The breast tissue is extremely dense which could obscure a lesion on mammography. No significant changes when compared with prior studies. ASSESSMENT: Benign, BI-RAD 2 RECOMMENDATION: Routine screening mammogram of both breasts in 1 year.
== END | disposition home or self-care (01) ==
LOC: RADMAMWWP 14:48
PROVIDERS: ATTEND Family Medicine
DX: Z12.31 Encounter for screening mammogram for malignant neoplasm of breast (principal)
CPT/HCPCS: 77063; 77067

== ENCOUNTER → 2021-12-30 | Outpatient (CLI) | payer MEDICARE, BC ==
--- NOTE | 2021-12-31 02:47 | MR ---
EXAMINATION TYPE: MR lumbar spine wo con DATE OF EXAM: 12/30/2021 COMPARISON: None HISTORY: Low back pain. Multiplanar multiecho imaging of the lumbar spine without contrast. The lumbar vertebrae have normal alignment. There is mild narrowing of the lumbar disc spaces. No com pression fracture. Mild posterior disc bulging is present at L5-S1. There is developmentally adequate spinal canal. No spinal stenosis. No lumbar paraspinal mass. I see no focal bone destruction. Sacroi liac joints are intact. IMPRESSION: Mild multilevel spondylotic changes. No spinal stenosis. Small posterior disc bulge at L5-S1. No frac ture.
== END | disposition home or self-care (01) ==
LOC: RADMRIMAIN 19:01
PROVIDERS: ATTEND Psychiatry & Neurology Neurology
DX: M47.816 Spondylosis without myelopathy or radiculopathy, lumbar region (principal)
CPT/HCPCS: 72148

== ENCOUNTER → 2022-01-06 | Outpatient (CLI) | payer MEDICARE, BC ==
--- NOTE | 2022-01-13 14:48 | US ---
EXAMINATION TYPE: US arterial LE single level DATE OF EXAM: 01/06/2022 1:50 PM CLINICAL HISTORY: M79.604 MELIZA LE PAIN. History of resting pain both legs. Comparison: Prior study February 14, 2018 Doppler Waveforms: Right: Some multiphasic with areas of biphasic and monophasic noted Left: Biphasic Ankle-Brachial Indices: Right: 1.23 Left: 1.25 Slightly more prominent loss of phasicity first 2017 may be technical. NATHAN values remain within [place]ber[place] l limits. IMPRESSION: As above. Consider follow-up.
== END | disposition home or self-care (01) ==
LOC: RADUSWWP 12:59
PROVIDERS: ATTEND Family Medicine
DX: I10 Essential (primary) hypertension (principal); M79.604 Pain in right leg; M79.605 Pain in left leg
CPT/HCPCS: 93922

== ENCOUNTER → 2022-03-10 | Outpatient (CLI) | payer MEDICARE, BC ==
--- NOTE | 2022-03-10 11:44 | FL ---
EXAMINATION TYPE: FL UGI air w esophagus DATE OF EXAM: 03/10/2022 COMPARISON: Prior esophagram February 22, 2020 HISTORY: History of gastroesophageal reflux and vomiting. History of endoscopy with distal esophageal dilatation 2 years ago. Patient on antireflux medication which helps with symptoms of pain, recently added second medication. History of hiatal hernia. TECHNIQUE: A double contrast UGI study is performed. A total of 55 seconds of fluoroscopic time was utilized during procedure and 46 images obtained. FINDINGS: [employer]ic image of the abdomen shows overall nonobstructive bowel gas pattern. Surgical change s to right hip are partially imaged The esophagus shows occasional episode of abnormal secondary contractions and diminished motility. No proximal diverticulum. No evidence of fixed hiatal hernia or stricture noted. Small sliding-type hia katerina hernia noted on delayed overhead images. The stomach shows less than optimal distention with mild to moderate gastric fold prominence particul mejia in the fundus. No evidence of any focal mass or ulcer disease. Mild distal gastroesophageal ref lux was seen during real time performance of this study. The duodenal bulb, sweep, and proximal small bowel loops are unremarkable. IMPRESSION: Small sliding-type hiatal hernia. Mild underlying esophageal dysmotility. Mild to moderat e fundal gastritis with mild distal gastroesophageal reflux.
== END | disposition home or self-care (01) ==
LOC: RADUSWWP 09:50
PROVIDERS: ATTEND Internal Medicine Gastroenterology
DX: K21.9 Gastro-esophageal reflux disease without esophagitis (principal)
CPT/HCPCS: 74246

== ENCOUNTER → 2022-06-11 | Outpatient (CLI) | payer MEDICARE, BC ==
[2022-06-11 22:41] LABS: Basophils # (A) 0.02 X 10*3/uL (0.00-0.10); Basophils % (A) 0.3 %; Eosinophils % (A) 3.3 %; HGB 11.9 g/dL (12.0-15.0); Immature Grans, Automated 0.3 %; Lymphocytes # (A) 1.31 X 10*3/uL (0.90-5.00); Lymphocytes % (A) 21.7 %; MCH 29.4 pg (27.0-32.0); MCHC 32.2 g/dL (32.0-37.0); MCV 91.4 fL (80.0-97.0); Mean Platelet Volume 9.5 fL (9.5-12.2); Monocytes # (A) 0.49 X 10*3/uL (0.20-1.00); Monocytes % (A) 8.1 %; NRBC Per 100 WBC 0 /100 WBCS (0.0-0.0); Neutrophils % (A) 66.3 %; Platelet Count 267 X 10*3/uL (140-440); RBC 4.05 X 10*6/uL (4.10-5.20); RDW 13.3 % (11.5-14.5); WBC 6.04 X 10*3/uL (4.50-10.00)
[2022-06-11 22:43] LABS: African American GFR (CKD) 69.5 (60.0-200.0); BUN/Creat Ratio 23.89 Ratio (12.00-20.00); Blood Urea Nitrogen 21.5 mg/dL (9.0-27.0); Calcium 9.3 mg/dL (8.7-10.3); Potassium 4.2 mmol/L (3.5-5.5)
[2022-06-11 23:07] LABS: INR 0.9 (0.90-1.11)
== END | disposition home or self-care (01) ==
LOC: LABPAT 13:27
PROVIDERS: ATTEND Orthopaedic Surgery
DX: Z01.812 Encounter for preprocedural laboratory examination (principal); Z01.818 Encounter for other preprocedural examination; Z22.322 Carrier or suspected carrier of Methicillin resistant Staphylococcus aureus
CPT/HCPCS: 80048; 85025; 85610; 87070

== ENCOUNTER 2022-06-21 08:20 | Day surgery (SDC) | payer MEDICARE, BC ==
[2022-06-17 13:04] VITALS: BMI 26.4
--- NOTE | 2022-06-20 23:33 | HP ---
HISTORY AND PHYSICAL DATE OF SURGERY: 06/21/2022. HISTORY OF PRESENT ILLNESS: Caitlin Conroy is an 82-year-old patient seen with symptomatic left hip osteoarthritis. We discussed options for treatment. She elected to proceed with direct anterior left total hip arthroplasty. Consent was obtained. Medical clearance was provided by Dr. Gambino. Cardiac clearance by Dr. Mayo. PAST MEDICAL HISTORY: Hypertension, hypothyroidism, cardiovascular disease, fibromyalgia. PAST SURGICAL HISTORY: Bilateral total knee arthroplasty, bladder surgery, breast surgery. DAILY MEDICATIONS: 1. Effexor. 2. Levothyroxine. 3. Tramadol. 4. Lunesta. 5. Dyazide. SOCIAL HISTORY: She denies tobacco use. PHYSICAL EVALUATION OF LEFT HIP: She has diffuse tenderness with hip girdle. Limited range of motion with severe pain. Positive hip impingement sign. Straight-leg raise negative. Distal neurovascular exam is intact. RADIOGRAPHS: Radiographs of the left hip reveal severe osteoarthritic changes. IMPRESSION: 1. Left hip osteoarthritis. 2. Hypertension. 3. Hypothyroidism. PLAN: Direct anterior left total hip arthroplasty. MMODL / IJN: [id number] /
[~2022-06-21 08:20] MED LIST changes: +ACETAMINOPHEN TAB 500 MG TAB PO PRN; +DEXAMETHASONE SOD PHOSPHATE 4 MG/ML 1 ML VIAL IV ONE; +HYDROmorphone 0.5 MG/0.5 ML SYRINGE IVP PRN; -LACTATED RINGERS 1,000 ML IV SCH; +LIDOCAINE 1% (10MG/ML) FOR IV START INTRADERMA PRN; +MELOXICAM 7.5 MG TAB PO PRN; +MIDAZOLAM 2 MG/2 ML VIAL IV PRN; +ONDANSETRON 4 MG/2 ML VIAL IVP ONE; +TRANEXAMIC ACID IN NACL,ISO-OS 1,000 MG in SALINE 1 100ML.BAG IVPB PRN
[2022-06-21] MEDS: LACTATED RINGERS 1,000 ML IV SCH (09:15)
[2022-06-21] MEDS ORDERED: MIDAZOLAM 2 MG/2 ML VIAL IVP ONE (09:32)
--- NOTE | 2022-06-21 09:41 | P.ANPRN ---
Procedure Note - Anesthesia - Nerve Block Performed Left Erector Spinae Single Time Out Performed: Yes ([id number]) Date of Procedure: 06/21/22 Procedure Start Time: :33 Procedure Stop Time: :38 Location of Patient: PreOp Indication: Acute Post-Operative Pain, Requested by Surgeon Sedation Type: Sedate with meaningful contact maintained Preparation: Sterile Prep, Sterile Dressing Position: Sitting Catheter: None Needle Types: Pajunk Needle Gauge: 21 Ultrasound used to visualize needle placement: Yes Ultrasound used to observe medication spread: Yes Injectate: 0.5% Ropivacaine (see comment for volume) Blood Aspirated: No Pain Paresthesia on Injection Noted: No Resistance on Injection: Normal Image Stored and Saved: Yes Events: Uneventful and Well Tolerated (25 mL of block solution containing 14 mL of 0.5% ropivacaine, 10mL of preservative free 0.9% NaCl mixed with 4 MG of dexamethasone)
--- NOTE | 2022-06-21 11:32 | P.OP ---
Date of Procedure: 06/21/22 Preoperative Diagnosis: Left hip osteoarthritis Postoperative Diagnosis: Left hip osteoarthritis Procedure(s) Performed: Direct anterior left total hip arthroplasty Implants: 1. Depuy [place] standard 135 with collar size 15 press-fit femoral stem 2. Depuy [place] 58 mm multi hole press-fit acetabular shell 3. Depuy [place] neutral polyethylene acetabular liner 58 mm OD 36 mm ID 4. Biolox delta ceramic femoral head +1.5 36 mm Anesthesia: regional (Adductor canal catheter), spinal Surgeon: Jean-Pierre Reilly Netsuite Consultant #1: Sudhir Jama Estimated Blood Loss (ml): 125 Pathology: other (Femoral head) Condition: stable Disposition: PACU Indications for Procedure: 82-year-old patient seen with symptomatic left hip osteoarthritis. After treatment options were discussed, she elected to proceed with direct anterior l eft total hip arthroplasty. Operative Findings: See description of procedure Description of Procedure: The patient was taken to the operative suite. Patient underwent a spinal anesthetic by the department of anesthesia. Patient was then transferred to the [place] table. Patient was given preoperative IV antibiotics and TXA. Both lower extremities were placed in standard leg spars. The hip was then prepped and draped in the normal sterile orthopedic fashion. A standard anterior incision was made beginning 3 cm lateral and 1 cm distal to the ASIS extending 10 cm. Dissection was then carried down through the subcutaneous soft tissues down to the fascia overlying the tensor fascia carli. An incision was now made through the fascia. Careful dissection was taken down exposing the tensor fascia carli muscle. A Cobra retractor was now placed along the medial femoral neck and a second one along the lateral femoral neck. The venous circumflex vessels were now identified, cauterized and clipped. We identified the anterior hip capsule. An incision was made through the hip capsule along the lateral border. I performed a partial anterior capsulectomy. Retractors were now placed around the femoral neck itself. A femoral neck cut was now made with a sagittal saw. It was completed with an osteotome at the lateral neck area. The femoral head was now removed without difficulty. The extremity was now rotated to 60 of external rotation. It was locked in position. Residual labrum was now debrided out. Serial reaming was performed of the acetabulum while James SORIANO assisted holding an anterior retractor for exposure. Once we reached the appropriate size and a trial was position and fit nicely. The appropriate size was now chosen opened and made available. It was introduced into the acetabulum without difficulty. The C-arm/fluoroscopy was now brought into the operative field. We made sure we had a true AP pelvic view. We now under direct C- arm/fluoroscopy introduced into the acetabular component with appropriate version and inclination. I held the cup in appropriate position while James SORIANO used a mallet to seat the acetabular component. I noted the component now to be well seated and stable. Acetabular cup introduce her was removed. The C-arm was pulled back. An appropriate liner was introduced and clicked into position. It was felt to be stable. At this point retractors were removed. The extremity was now placed into 135 external rotation with no traction. The leg was now dropped to the ground and adducted. Appropriate retractors were now positioned along the proximal femur. We also placed our femoral look into position. Additional capsular releasing was performed to gain access to the proximal femur. We now used a box osteotome. A canal finder was now utilized. Serial broaching was now performed with the assistance of James SORIANO tapping the broaches down with a mallet while held the broach in appropriate rotation and position. This was done until we reached the appropriate size with good overall rotational stability. Appropriate calcar planing was performed. A trial head/neck was placed into position. The hip was now reduced. The C- arm/fluoroscopy was brought back into the operative field. I had taken an AP pelvis was demonstrated adequate leg length alignment. The trial components appeared adequately sized and position. The C-arm/fluoroscopy was pulled back. Retractors were repositioned and the hip was dislocated. The leg was again taken down to the ground and adducted. Appropriate retractors were repositioned as well as the femoral hook. All trial components were removed. The femoral implant was opened along with the femoral head. The femoral implant was introduced on the appropriate handle into our pre-broached area. I held the component position well James SORIANO used a mallet to seat the femoral component. The femoral component was now noted to be well seated and stable.. The femoral head was introduced with good positioning and fixation noted. Retractors were now removed. The hip was now reduced. There appeared be good positioning of the hip confirmed on intraoperative fluoroscopy. Spot films were obtained to document this. A second gram of TXA was given. The deep and superficial soft tissues were infiltrated with local analgesic. Bipolar cautery had been utilized intermittently through the procedure for hemostasis. The wound was irrigated copiously with pulse lavage mechanical irrigation. The fasc ia was repaired with Vicryl suture. The subcutaneous soft tissues were repaired in layers with Vicryl suture. The skin was approximated with pernio/Dermabond. Sterile dressings were applied. Patient was then awakened, transferred to a bed and taken to recovery in stable condition. James SORIANO assisted with the complex procedure.
[2022-06-21] MEDS ORDERED: HYDROmorphone 0.5 MG/0.5 ML SYRINGE IVP PRN ×3 (11:34)
[2022-06-21] MEDS ORDERED: NALOXONE 0.4 MG/ML 1 ML VIAL IV PRN (11:34)
[2022-06-21] MEDS ORDERED: ONDANSETRON 4 MG/2 ML VIAL IVP PRN (11:34)
--- NOTE | 2022-06-21 11:53 | FL ---
Fluoroscopy HISTORY: Pain 9 seconds fluoroscopy time supplied to the referring clinician. 2 intraoperative C-arm images docume nt the procedure. See dictated report from orthopedic surgery.
[2022-06-21] MEDS: HYDROcodone/APAP 5-325MG 1 EACH TAB PO PRN ×2 (15:12→22:02)
[2022-06-21] MEDS: SODIUM CHLORIDE 0.9% 1,000 ML IV SCH (15:33)
--- NOTE | 2022-06-21 16:46 | P.CONS ---
History of Present Illness - Reason for Consult Consult date: 06/21/22 - History of Present Illness Patient is an 82-year-old female with PMH of seasonal ALLERGIES, hypertension, restless leg syndrome, hypothyroidism, peripheral neuropathy, lower kari swelling the presents to [facility] for elective surgery. She underwent left total hip arthroplasty. She has been admitted overnight for observation. [facility] physicians has been consulted for medical management of this patient. Patient reports well-controlled pain in her left hip. She denies any symptoms at this time. Urinating freely. Not passing gas, no bowel movement. She denies any headache, lower extremity edema, nausea vomiting, fever chills, cough, chest pain, shortness breath, or palpitations. No changes in appetite or weight. She denies any dizziness, numbness/weakness/tingling of the extremities. Review of systems is performed and is negative except above. General: non toxic, no distress, appears at stated age Derm: warm, dry Head: atraumatic, normocephalic, symmetric Eyes: EOMI, no lid lag, anicteric sclera Mouth: no lip lesion, mucus membranes moist Cardiovascular: S1S2 reg, no murmur Lungs: CTA bilateral, no rhonchi, no rales , no accessory muscle use Abdominal: soft, nontender to palpation, no guarding, no appreciable organomegaly Ext: no gross muscle atrophy, no edema, no contractures Neuro: no focal neuro deficits Psych: Alert, oriented, appropriate affect #Peripheral neuropathy #Lower extremity swelling #Hypothyroidism #Seasonal ALLERGIES #Restless leg syndrome #Hypertension #Esophagitis Continue gabapentin. Continue Lasix as needed. Continue Synthroid. Continue Singulair and Katrina. Continue Mirapex. Continue amlodipine. Monitor vitals, adjust medication if necessary. Continue Protonix. DVT prophylaxis: Lovenox Discussed with: Patient and daughter Anticipated discharge: 1-[address]: Home A total of 25 minutes was spent on the care of this complex patient more than 50% of the time was spent in counseling and care coordination. Patient answered daughter decision maker if she can't make decisions for herself. Patient would like to be full code. Past Medical History Past Medical History: Cancer, Fibromyalgia, GERD/Reflux, Hypertension, Thyroid Disorder Additional Past Medical History / Comment(s): Hx-breast and bladder cancer with chemo. Peripheral neuropathy since chemo, environmental allergies, balance issues, Raynauds disease. 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 Past Anesthesia/Blood Transfusion Reactions: No Reported Reaction Past Psychological History: Anxiety, Depression Smoking Status: Never smoker Past Alcohol Use History: Occasional Additional Past Alcohol Use History / Comment(s): 1 DRINK OF WINE PER NIGHT Past Drug Use History: None Reported - Past Family History Mother Family Medical History: No Reported History Medications and Allergies Home Medications Medication Instructions Recorded Confirmed Type Fexofenadine HCl [Katrina Allergy] 180 mg PO DAILY 07/11/17 06/21/22 History Fluticasone Nasal [place] [Flonase 2 spray EA NOSTRIL DAILY PRN 07/11/17 06/21/22 History Nasal [place]] Levothyroxine Sodium 125 mcg PO QAM 07/11/17 06/21/22 History Montelukast [Singulair] 10 mg PO DAILY 07/11/17 06/21/22 History traMADol HCL [Ultram] 50 mg PO TID PRN 07/11/17 06/21/22 History Pramipexole [Mirapex] 0.125 mg PO HS 04/29/20 06/21/22 History Gabapentin 300 mg PO QID 06/17/22 06/21/22 History Lasix (Unknown Dose) 1 tab PO DIRECTED PRN 06/17/22 06/21/22 History Pantoprazole Sodium [Protonix] 40 mg PO AC-BID 06/17/22 06/21/22 History amLODIPine [Norvasc] 2.5 mg PO QAM 06/17/22 06/21/22 History Allergies Allergy/AdvReac Type Severity Reaction Status Date / Time No Known Allergies Allergy Verified 06/21/22 08:50 Physical Exam Vitals: Vital Signs Temp Pulse Pulse Resp BP Pulse Ox 06/21/22 15:05 98.0 F 64 18 166/72 96 06/21/22 14:27 68 16 148/67 97 06/21/22 13:57 58 L 16 154/70 94 L 06/21/22 13:27 57 L 16 153/70 94 L 06/21/22 12:57 59 L 16 157/71 96 06/21/22 12:42 56 L 16 145/64 96 06/21/22 12:27 55 L 16 148/65 96 06/21/22 12:12 53 L 16 133/62 96 06/21/22 11:57 97.0 F L 57 L 16 138/63 99 06/21/22 09:47 72 16 128/55 94 L 06/21/22 08:41 98.1 F 70 18 132/60 93 L Intake and Output 06/21/22 06/21/22 06/21/22 06:59 14:59 22:59 Intake Total 850 Output Total 125 Balance 725 Intake: IV 850 Output: Estimated Blood Loss 125 Other: Weight 79.6 kg
[2022-06-21] MEDS ORDERED: PRAMIPEXOLE 0.125 MG TAB PO SCH (21:00)
[2022-06-21] MEDS ORDERED: SENNOSIDES-DOCUSATE SODIUM 1 EACH TAB PO SCH (21:00)
[2022-06-21] MEDS: GABAPENTIN 300 MG CAP PO SCH (22:02)
[2022-06-22] MEDS: HYDROcodone/APAP 5-325MG 1 EACH TAB PO PRN ×3 (05:56→16:21)
[2022-06-22] MEDS ORDERED: LEVOTHYROXINE 125 MCG TAB PO SCH (06:30)
[2022-06-22 06:46] VITALS: PULSE 75
[2022-06-22] MEDS ORDERED: PANTOPRAZOLE 40 MG TABLET PO SCH (07:30)
[2022-06-22] MEDS: LACTATED RINGERS 1,000 ML IV SCH (07:41)
[2022-06-22] MEDS: GABAPENTIN 300 MG CAP PO SCH ×2 (08:15→12:18)
[2022-06-22] MEDS: SODIUM CHLORIDE 0.9% 1,000 ML IV SCH (08:18)
[2022-06-22] MEDS ORDERED: FAMOTIDINE 20 MG TAB PO SCH (09:00)
[2022-06-22] MEDS ORDERED: amLODIPine 2.5 MG TAB PO SCH (09:00)
[2022-06-22] MEDS ORDERED: MONTELUKAST 10 MG TAB PO SCH (09:00)
[2022-06-22] MEDS ORDERED: ENOXAPARIN 40 MG/0.4 ML SYRINGE SQ SCH (09:00)
--- NOTE | 2022-06-22 10:03 | P.PN ---
Subjective Progress Note Date: 06/22/22 Hospital course: Patient is a very pleasant 82-year-old female with a past medical history of hypertension, restless leg syndrome, hypothyroidism, peripheral neuropathy, chronic lower extremity swelling, and seasonal ALLERGIES. She is currently admitted under orthopedic surgery team with Dr. Reilly status post left total hip arthroplasty completed secondary to left hip osteoarthritis. We have been consulted for medical management throughout patient's hospitalization. Physical exam: Patient was seen and fully evaluated at bedside this morning. She is currently postoperative day one and appears to be doing well. Patient reports controlled postoperative pain and reports mild discomfort with movement and ambulation. Patient has been ambulatory with walker and denies having any difficulties. Postoperative hemoglobin stable at 11.3. Vital signs are unremarkable. Vital signs reviewed and stable. General: Nontoxic, no distress and appears stated age. Derm: Skin warm and dry, normal coloration for ethnicity. Head: Atraumatic, normocephalic and symmetric. Eyes: EOMs intact, no lid lag, and anicteric sclera Mouth: no lip lesions, mucus membranes moist Cardiovascular: regular rate and rhythm with normal S1S2, no murmur, positive posterior tibial pulses bilaterally, and cap refill < 2 seconds. Lungs: Respirations even, regular, and unlabored on room air. Lungs CTA bilaterally, no rhonchi, no rales, no wheezing, and no accessory muscle usage. Abdominal: soft, nontender to palpation, no guarding, no appreciable organomegaly Ext: ROM intact. No gross muscle atrophy, no edema, no contractures Neuro: Speech clear, face symmetrical and CN II-XII grossly intact with no noted focal neuro deficits Psych: Alert and oriented to person, place, time, and situation. Appropriate and pleasant affect. Assessment and Plan of Care: Postoperative blood loss anemia, expected finding Hemoglobin stable at 11.3, no need for further testing. Status post left total hip arthroplasty, postoperative day one Management per primary admitting orthopedic surgery team including DVT prophylaxis, pain management, wound/dressing changes, weightbearing, and PT/OT. DVT prophylaxis currently with Lovenox. Hypertension Monitor vital signs and continue daily medication regimen with amlodipine. Hypothyroidism Continue daily medication regimen with levothyroxine. Seasonal ALLERGIES with asthma Continue daily medication regimen with Katrina and Singulair. Peripheral neuropathy Continue daily medication regimen with gabapentin 300 mg 4 times daily. Thank you for allowing us to participate in the care of this pleasant patient. Do not hesitate to contact us with questions. Someone can be reached from the [facility] [place] hospitalist group all hours of the day at [phone] or via perfect serve. Objective - Vital Signs Vital signs: Vital Signs Temp 97.9 F 06/22/22 06:42 Pulse 75 06/22/22 06:42 Resp 17 06/22/22 06:42 BP 146/77 06/22/22 06:42 Pulse Ox 99 06/22/22 06:42 FiO2 Intake & Output 06/21/22 06/22/22 06/22/22 18:59 06:59 18:59 Intake Total 850 170 Output Total 125 Balance 725 170 Weight 79.6 kg Intake: IV 850 Intake, IV Titration 170 Amount Lactated Ringers 1,000 ml 120 @ 20 mls/hr IV .Q24H SAAD Rx#:[id number] ceFAZolin 2 gm In Sodium 50 Chloride 0.9% 50 ml @ 100 mls/hr IVPB Q8H SAAD Rx#: [id number] Output: Estimated Blood Loss 125 Other: # Voids 2 1 # Bowel Movements 0 - Labs CBC & Chem 7: 06/22/22 07:14
[2022-06-22 10:34] LABS: Basophils # (A) 0.01 X 10*3/uL (0.00-0.10); Basophils % (A) 0.1 %; Eosinophils # (A) 0.02 X 10*3/uL (0.04-0.35); Eosinophils % (A) 0.2 %; HCT 34.7 % (37.2-46.3); HGB 11.3 g/dL (12.0-15.0); Immature Grans, Automated 0.4 %; Lymphocytes # (A) 1.07 X 10*3/uL (0.90-5.00); Lymphocytes % (A) 11.9 %; MCH 29.5 pg (27.0-32.0); MCHC 32.6 g/dL (32.0-37.0); MCV 90.6 fL (80.0-97.0); Mean Platelet Volume 9.7 fL (9.5-12.2); Monocytes # (A) 0.61 X 10*3/uL (0.20-1.00); Monocytes % (A) 6.8 %; NRBC Per 100 WBC 0 /100 WBCS (0.0-0.0); Neutrophils # (A) 7.22 X 10*3/uL (1.80-7.70); Neutrophils % (A) 80.6 %; Platelet Count 285 X 10*3/uL (140-440); RBC 3.83 X 10*6/uL (4.10-5.20); RDW 13.7 % (11.5-14.5); WBC 8.97 X 10*3/uL (4.50-10.00)
--- NOTE | 2022-06-22 12:28 | P.PN ---
Subjective Progress Note Date: 06/22/22 Principal diagnosis: Status post direct anterior left total hip arthroplasty Patient evaluated at bedside, she is resting in her hospital chair. She's been up ambulating already, therapy set she did very well. She did have no acute events overnight. She denies any headaches, lightheadedness, chest pain or shortness of breath. Objective - Vital Signs Vital signs: Vital Signs Temp 97.9 F 06/22/22 06:42 Pulse 75 06/22/22 06:42 Resp 17 06/22/22 06:42 BP 146/77 06/22/22 06:42 Pulse Ox 99 06/22/22 06:42 FiO2 Intake & Output 06/21/22 06/22/22 06/22/22 18:59 06:59 18:59 Intake Total 850 170 Output Total 125 Balance 725 170 Weight 79.6 kg Intake: IV 850 Intake, IV Titration 170 Amount Lactated Ringers 1,000 ml 120 @ 20 mls/hr IV .Q24H SAAD Rx#:[id number] ceFAZolin 2 gm In Sodium 50 Chloride 0.9% 50 ml @ 100 mls/hr IVPB Q8H SAAD Rx#: [id number] Output: Estimated Blood Loss 125 Other: # Voids 2 1 # Bowel Movements 0 - Exam Left lower extremity: Incision is clean, dry, and intact. The foam dressing is in good condition. [There is minimal soft tissue swelling and ecchymosis surrounding the medial and lateral aspects of the incision.] Calf is soft, no tenderness with palpation. Plantar flexion, dorsiflexion, EHL, FHL are intact. Sensory exam to light touch throughout the extremity is intact, [dorsal pedis pulses 2+.] - Labs CBC & Chem 7: 06/22/22 07:14 Labs: Abnormal Lab Results - Last 24 Hours (Table) 06/22/22 Range/Units 07:14 RBC 3.83 L (4.10-5.20) X 10*6/uL Hgb 11.3 L (12.0-15.0) g/dL Hct 34.7 L (37.2-46.3) % Eosinophils # 0.02 L (0.04-0.35) X 10*3/uL Assessment and Plan Assessment: Postoperative day #1 status post right anterior left total hip arthroplasty Plan: Pain control, discharge and [place] 5 mg/325 mg DVT prophylaxis, aspirin 81 mg twice a day for 30 days Wound care instructions discussed, this to include icing, showering and when to remove bandage Medical recommendations Physical therapy/nursing after discharge Discharge planning: Patient stable for discharge home today Time with Patient: Less than 30
--- NOTE | 2022-06-22 12:31 | P.DS ---
Providers Date of admission: 06/21/2022 Expected date of discharge: 06/22/22 Attending physician: Jean-Pierre Reilly Consults: 06/21/22 11:34 Consult Physician Routine Consulting Provider: Audra Mock Consult Reason/Comments: Medical management Do you want consulting provider notified?: Yes Primary care physician: [facility] Course: Date of admission: 06/21/2022 Date of discharge: 06/22/2022 Admission diagnosis: Status post direct anterior left total hip arthroplasty Discharge diagnosis: Same Attending physician: Dr. Reilly Surgical procedures: Status post direct repair left total hip arthroplasty Brief history: Patient is a 82-year-old female with a history of progressive primary left hip osteoarthritis. At this point patient has failed conservative treatment measures and has opted to proceed with a elective direct anterior left total hip arthroplasty. Hospital course: Details of patient's surgery can be found in operative report. Patient tolerated the procedure well and was subsequently transported to orthopedic floor. Patient's orthopeidc and medical care was provided daily. Patient had daily laboratory tests performed for evaluation of overall blood counts. Patient had daily physical therapy to include strengthening range of motion as well as education with walker ambulation. Patient was treated with Lovenox for their postoperative DVT prophylaxis during their inpatient stay. Patient was noted to have a relatively uneventful postoperative course. Patient reported satisfactory pain control with oral pain medications by postoperative day 0. Patient showed satisfactory progress with physical therapy. Patient moved steadily through the program and had no difficulty meeting the goals by postoperative day 1. Given patient's otherwise satisfactory course and having met physical therapy goals, plan is to discharge patient home on postoperative day 1. Discharge condition/disposition: Patient will be discharged home in stable condition. Discharge medications: Instructions are given on resumption of patient's normal daily medications per primary care recommendation, in addition patient will be prescribed [place] 5 mg/325 mg, Senokot-S, aspirin 81 mg. Discharge instructions: 1. Wound care and infection precautions, keep incision dry and covered while showering, no lotions, creams, moisturizers. No soaking, tubs, pools, hottubs. Do not scrub over the incision. 2. Weight-bear as tolerated with walker / cane until follow-up. 3. Ice and elevate when necessary. Do not exceed 20 minutes per hour with ice pack. 4. Utilize compression sleeve until seen at first follow up appointment. 5. Visiting nursing care. 6. Home physical therapy. 7. Pain meds and anticoagulants per prescription. 8. Pain medication has potential to cause constipation. Increase oral fluid and fiber intake. Contact primary care provider if you have not had a bowel movement within 48 hours after discharge 9. No anti-inflammatory medication until discussed at first post operative visit, this including Motrin, Aleve, Mobic, Diclofenac. 10. Follow up in office at 2 weeks postop with James Jama PA-C/Jhonny Retana 11. Follow up with your primary care doctor 7-10 days after discharge. 12. Contact [facility] with any questions, . Procedures: Direct anterior left total hip arthroplasty Patient Condition at Discharge: Good Plan - Discharge Summary Discharge Rx Participant: No New Discharge Prescriptions: New Aspirin [Adult Low Dose Aspirin EC] 81 mg PO BID #60 tab HYDROcodone/APAP 5-325MG [[place] 5-325] 1 tab PO Q4HR PRN #42 tab PRN Reason: Pain Sennosides/Docusate Sodium [Senna-S 8.6-50 mg Tablet] 1 each PO DAILY PRN #21 tablet PRN Reason: Constipation Continue Fluticasone Nasal [place] [Flonase Nasal [place]] 2 spray EA NOSTRIL DAILY PRN PRN Reason: Allergic Reaction Fexofenadine HCl [Katrina Allergy] 180 mg PO DAILY Montelukast [Singulair] 10 mg PO DAILY Levothyroxine Sodium 125 mcg PO QAM Pramipexole [Mirapex] 0.125 mg PO HS Pantoprazole Sodium [Protonix] 40 mg PO AC-BID Lasix (Unknown Dose) 1 tab PO DIRECTED PRN PRN Reason: Edema amLODIPine [Norvasc] 2.5 mg PO QAM Gabapentin 300 mg PO QID No Action traMADol HCL [Ultram] 50 mg PO TID PRN PRN Reason: Pain Discharge Medication List Fexofenadine HCl [Katrina Allergy] 180 mg PO DAILY 07/11/17 [History] Fluticasone Nasal [place] [Flonase Nasal [place]] 2 spray EA NOSTRIL DAILY PRN 07/11/17 [History] Levothyroxine Sodium 125 mcg PO QAM 07/11/17 [History] Montelukast [Singulair] 10 mg PO DAILY 07/11/17 [History] traMADol HCL [Ultram] 50 mg PO TID PRN 07/11/17 [History] Pramipexole [Mirapex] 0.125 mg PO HS 04/29/20 [History] Gabapentin 300 mg PO QID 06/17/22 [History] Lasix (Unknown Dose) 1 tab PO DIRECTED PRN 06/17/22 [History] Pantoprazole Sodium [Protonix] 40 mg PO AC-BID 06/17/22 [History] amLODIPine [Norvasc] 2.5 mg PO QAM 06/17/22 [History] Aspirin [Adult Low Dose Aspirin EC] 81 mg PO BID #60 tab 06/22/22 [Rx] HYDROcodone/APAP 5-325MG [[place] 5-325] 1 tab PO Q4HR PRN #42 tab 06/22/22 [Rx] Sennosides/Docusate Sodium [Senna-S 8.6-50 mg Tablet] 1 each PO DAILY PRN #21 tablet 06/22/22 [Rx] Follow up Appointment(s)/Referral(s): Princess Lackey MD [Primary Care Provider] - 1 Week [facility], [NON-STAFF] - 1-2 Days ([facility] will call you to schedule your in home nursing and physical therapy visits. ) Sudhir Jama PAC [PHYSICIAN DRY CELL SEALER] - 07/07/22 2:20 pm Activity/Diet/Wound Care/Special Instructions: Orthopedic Discharge Instructions: 1. Wound care and infection precautions, keep incision dry and covered while showering, no lotions, creams, moisturizers. No soaking, pools, hot tubs. Do not scrub over incision. 2. Weight-bear as tolerated with walker / cane until follow-up. 3. Ice and elevate when necessary. Do not exceed 20 minutes per hour with ice pack. 4. Utilize compression sleeve until seen at first follow up appointment. 5. Pain meds and anticoagulants per prescription. 6. Pain medication has potential to cause constipation. Increase oral fluid and fiber intake. Contact primary care provider if you have not had a bowel movement within 48 hours after discharge. 7. No anti-inflammatory medication until discussed at first post operative visi t, this including Motrin, Aleve, Mobic, Diclofenac. 8. Follow up in office at 2 weeks postop with James Jama PA-C/Jhonny Tripp PA-C 9. Follow up with your primary care doctor 7-10 days after discharge. 10. Contact [facility] with any questions, . Wound care instructions: 1. Remove bandage as a 06/28/2022 2. Okay to shower over incision after removal of bandage Discharge Disposition: HOME WITH HOME HEALTH SERVICES
[2022-06-22 13:57] VITALS: BP 174/73; RESP 18; TEMP 97.8
[2022-06-23] MEDS ORDERED: LORATADINE 10 MG TAB PO SCH (09:00)
== END 2022-06-22 17:14 | disposition home health service (06) ==
LOC: OR 08:20 → 4SSUR 11:29 → OR 06-22 17:14
PROVIDERS: ATTEND Orthopaedic Surgery
DX: M16.12 Unilateral primary osteoarthritis, left hip (principal); G89.18 Other acute postprocedural pain; I11.9 Hypertensive heart disease without heart failure; E03.9 Hypothyroidism, unspecified; M79.7 Fibromyalgia; Z79.890 Hormone replacement therapy; Z79.899 Other long term (current) drug therapy; Z79.82 Long term (current) use of aspirin
CPT/HCPCS: 97161; 64999; 85025; 88300; 73501; 27130; C1776; J2250; J1100; J0690 ×2; J2405; J1650; J1170; 86850; 86900; 86901

== ENCOUNTER → 2022-09-14 | Outpatient (CLI) | payer MEDICARE, BC ==
--- NOTE | 2022-09-15 10:39 | MM ---
Reason for Exam: Screening (asymptomatic). Last mammogram was performed 1 year(s) and 6 month(s) ago. Patient History: Menarche at age 15. First Full-Term at age 30. Left ovary removed at age 81. Right ovary removed at age 81. Hysterectomy at age 81. Postmenopausal. Other cancer. Breast cancer, right, age 41. Benign Excisional Biopsy on the left side. 1981, Lumpectomy on the Right side. Prior Study Comparison: 07/24/2018 Bilateral Screening Mammogram, [facility]. 02/19/2020 Bilateral Screening Mammogram, [facility]. 04/03/2021 Bilateral Screening Mammogram, [facility]. Tissue Density: The breast tissue is heterogeneously dense. This may lower the sensitivity of mammography. Findings: Analyzed By CAD. Pattern appears symmetrical and stable. Scattered benign-appearing calcifications are present No suspicious groups of microcalcifications, spiculated or lobular masses, architectural distortion or other secondary signs of malignancy are mammographically apparent. Overall Assessment: Benign, BI-RAD 2 Management: Screening Mammogram of both breasts in 1 year. A negative mammogram report should not preclude additional follow up of suspicious palpable abnormalities. Patient should continue monthly self breast exam. A clinical breast exam by your physician is recommended on an annual basis and results should be correlated with mammographic findings. Electronically signed and approved by: Kirk Moore D.O. Radiologis
== END | disposition home or self-care (01) ==
LOC: RADMAMWWP 14:49
PROVIDERS: ATTEND Family Medicine
DX: Z12.31 Encounter for screening mammogram for malignant neoplasm of breast (principal); Z78.0 Asymptomatic menopausal state; Z85.3 Personal history of malignant neoplasm of breast; Z98.890 Other specified postprocedural states
CPT/HCPCS: 77063; 77067

== ENCOUNTER 2022-11-24 11:04 | Day surgery (SDC) | payer MEDICARE, BC ==
[2022-11-22 16:34] VITALS: BMI 53.0
[~2022-11-24 11:04] MED LIST changes: -ACETAMINOPHEN TAB 500 MG TAB PO PRN; -DEXAMETHASONE SOD PHOSPHATE 4 MG/ML 1 ML VIAL IV ONE; -HYDROmorphone 0.5 MG/0.5 ML SYRINGE IVP PRN; +LACTATED RINGERS 1,000 ML IV SCH; -MELOXICAM 7.5 MG TAB PO PRN; -MIDAZOLAM 2 MG/2 ML VIAL IV PRN; -ONDANSETRON 4 MG/2 ML VIAL IVP ONE; -TRANEXAMIC ACID IN NACL,ISO-OS 1,000 MG in SALINE 1 100ML.BAG IVPB PRN
[2022-11-24 11:41] VITALS: TEMP 96.9
[2022-11-24] MEDS ORDERED: PROPOFOL 10 MG/ML 20 ML VIAL IV ONE (12:15)
--- NOTE | 2022-11-24 12:33 | P.PCN ---
Date of Procedure: 11/24/22 Procedure(s) Performed: BRIEF HISTORY: Patient is a 82-year-old pleasant white female scheduled for an elective colonoscopy as a part of recent episode of acute sigmoid diverticulitis PROCEDURE PERFORMED: Colonoscopy with biopsy. PREOPERATIVE DIAGNOSIS: Recent episode of acute sigmoid diverticulitis. IV sedation per Anesthesia. PROCEDURE: After informed consent was obtained, the patient, was brought into the endoscopy unit. IV sedation was administered by Anesthesia under continuous monitoring. Digital rectal examination was normal. Initially the Olympus CF-160 flexible video colonoscope was then inserted in the rectum, gradually advanced into the cecum without any difficulty. Careful examination was performed as the scope was gradually being withdrawn. Ileocecal valve and the appendiceal orifice were visualized and appeared normal. Prep was excellent. Mucosa of the cecum, ascending colon, transverse colon, descending colon appeared normal. In the sigmoid: There was a 3 mm polyp that was removed by cold biopsy. At her sigmoid diverticulosis. Rest of the sigmoid colon, and rectum appeared normal. Retroflexion was performed in the rectum and no lesions were seen. The patient tolerated the procedure well. IMPRESSION: 3 mm sigmoid colon polyp status post cold biopsy Scattered sigmoidal RECOMMENDATIONS: Findings of this examination were discussed with the patient as well as a family. She was advised to follow with the biopsy results. Recommend a high-fiber diet and take fiber supplements as needed.
[2022-11-24 12:51] VITALS: BP 151/67; PULSE 61; RESP 14
== END 2022-11-24 13:15 | disposition home or self-care (01) ==
LOC: ORWHC2ENDO 11:04
PROVIDERS: ATTEND Internal Medicine Gastroenterology
DX: Z12.11 Encounter for screening for malignant neoplasm of colon (principal); K57.32 Diverticulitis of large intestine without perforation or abscess without bleeding
CPT/HCPCS: 88305; 45380; J2704

== ENCOUNTER 2023-01-13 16:33 | Inpatient (IN) | payer MEDICARE, BC ==
--- NOTE | 2023-01-13 17:01 | ED ---
General Adult HPI - General Source: patient Mode of arrival: wheelchair <Corazon Kaiser - Last Filed: 01/13/23 17:00> - General Source: RN notes reviewed, old records reviewed Mode of arrival: wheelchair Limitations: no limitations - History of Present Illness -: days(s) Location: mouth, chest, back Radiation: non-radiation Severity scale (1-10): 7 Quality: aching Consistency: constant, intermittent Improves with: none Worsens with: none Associated Symptoms: loss of appetite, nausea/vomiting, weakness <Marshall Lozano - Last Filed: 01/15/23 16:20> - General Chief complaint: Upper Respiratory Infection Stated complaint: MARLEEN can't swallow Time Seen by Provider: 01/13/23 17:00 - History of Present Illness Initial comments: 82-year-old female presents to the emergency department with chief complaint of fever, cough, generalized body aches. (Corazon Kaiser) This is a 82-year-old female to the emergency department today. Patient p resents today for evaluation of fever cough generalized pain and aches, patient's symptoms for 5 days. Increased cough and congestion with severe sore throat runny nose bodyaches. Patient denies having history of coronavirus. Patient was out with family this past weekend. (Marshall Lozano) - Related Data Home Medications Medication Instructions Recorded Confirmed Montelukast [Singulair] 10 mg PO HS 07/11/17 01/13/23 traMADol HCL [Ultram] 50 mg PO TID PRN 07/11/17 01/13/23 Pramipexole [Mirapex] 0.25 mg PO HS 04/29/20 01/13/23 Pantoprazole Sodium [Protonix] 40 mg PO AC-BID 06/17/22 01/13/23 amLODIPine [Norvasc] 2.5 mg PO DAILY 06/17/22 01/13/23 Furosemide [Lasix] 20 mg PO DAILY PRN 01/13/23 01/13/23 HYDROcodone/APAP 5-325MG [[place] 1 tab PO BID PRN 01/13/23 01/13/23 5-325] Levothyroxine Sodium [Synthroid] 137 mcg PO DAILY 01/13/23 01/13/23 busPIRone HCL [Buspar] 7.5 mg PO DAILY 01/13/23 01/13/23 Allergies Allergy/AdvReac Type Severity Reaction Status Date / Time No Known Allergies Allergy Verified 01/13/23 22:12 Review of Systems ROS Other: All systems not noted in ROS Statement are negative. <Corazon Kaiser - Last Filed: 01/13/23 17:00> ROS Other: All systems not noted in ROS Statement are negative. <Marshall Lozano - Last Filed: 01/15/23 16:20> ROS Statement: Those systems with pertinent positive or pertinent negative responses have been documented in the HPI. Past Medical History Past Medical History: Cancer, Fibromyalgia, GERD/Reflux, Hypertension, Thyroid Disorder Additional Past Medical History / Comment(s): Hx-breast and bladder cancer with chemo. Peripheral neuropathy since chemo, environmental allergies, balance issues- USES WALKER AND CANE , Raynauds disease. 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 Past Anesthesia/Blood Transfusion Reactions: No Reported Reaction Past Psychological History: Anxiety, Depression Smoking Status: Never smoker - Past Family History Mother Family Medical History: No Reported History <Corazon Kaiser - Last Filed: 01/13/23 17:00> General Exam General appearance: alert, in no apparent distress Head exam: Present: atraumatic, normocephalic, normal inspection Eye exam: Present: normal appearance, PERRL, EOMI. Absent: scleral icterus, conjunctival injection, periorbital swelling ENT exam: Present: normal exam, mucous membranes moist Neck exam: Present: normal inspection. Absent: tenderness, meningismus, lymphadenopathy Respiratory exam: Present: normal lung sounds bilaterally. Absent: respiratory distress, wheezes, rales, rhonchi, stridor Cardiovascular Exam: Present: regular rate, normal rhythm, normal heart sounds. Absent: systolic murmur, diastolic murmur, rubs, gallop, clicks GI/Abdominal exam: Present: soft, normal bowel sounds. Absent: distended, tenderness, guarding, rebound, rigid Extremities exam: Present: normal inspection, full ROM, normal capillary refill. Absent: tenderness, pedal edema, joint swelling, calf tenderness Back exam: Present: normal inspection Neurological exam: Present: alert, oriented X3, CN II-XII intact Psychiatric exam: Present: normal affect, normal mood Skin exam: Present: warm, dry, intact, normal color. Absent: rash <Marshall Lozano - Last Filed: 01/15/23 16:20> Course <Marshall Lozano - Last Filed: 01/15/23 16:20> Vital Signs 01/13/23 01/13/23 01/13/23 16:42 20:28 20:34 Temperature 100.2 F H 98.3 F Pulse Rate 85 85 Respiratory 18 19 20 Rate Blood Pressure 147/82 O2 Sat by Pulse 97 97 Oximetry 01/13/23 23:27 Temperature 97.9 F Pulse Rate 76 Respiratory 17 Rate Blood Pressure 147/79 O2 Sat by Pulse 96 Oximetry - Reevaluation(s) Reevaluation #1: 01/13/23 23:41 Medical records reviewed (Marshall Lozano) Reevaluation #2: 01/13/23 23:41 Patient has no real change of symptoms here in the ER (Marshall Lozano) Reevaluation #3: 01/13/23 23:41 Patient informed results questions answered (Marshall Lozano) Reevaluation #4: 01/13/23 23:41 Was pt. sent in by a medical professional or institution? @ -no Did you speak to anyone other than the patient for history? @ -yes daughter at bedside who provoides history of present illness for patient including duration and increasing weakness Did you review nursing and triage notes? @ -agree Were old charts reviewed? @ -no Differential Diagnosis? @ -prior EKG interpreted by me (3pts min.)? @ -yes X-rays interpreted by me (1pt min.)? @ -yes CT interpreted by me (1pt min.)? @ -no U/S interpreted by me (1pt. min.)? @ -no What testing was considered but not performed? (CT, X-rays, U/S, labs)? Why? @ -no What meds were considered but not given? Why? @ -no Did you discuss the management of the patient with other professionals? @ -no Did you reconcile home meds? @ -no Was smoking cessation discussed for >3mins.? @ -no Was critical care preformed (if so, how long)? @ -no Were there social determinants of health that impacted care today? How? (Homelessness, low income, unemployed, alcoholism, drug addiction, salomon sportation, low edu. Level, literacy, decrease access to med. care, snf, rehab)? @ -no Was there de-escalation of care discussed even if they declined? (Discuss DNR or withdrawal of care, Hospice)? @ -no What co-morbidities impacted this encounter? (DM, HTN, Smoking, COPD, CAD, Cancer, CVA, Hep., AIDS, mental health diagnosis, sleep apnea, morbid obesity)? @ -none Was patient admitted / discharged? @ -admit Undiagnosed new problem with uncertain prognosis? @ -no Drug Therapy requiring intensive monitoring for toxicity (Heparin, Nitro, Insulin, Cardizem)? @ -no Were any procedures done? @ -no Diagnosis/symptom? @ -dehydration,COVID19 pneumonia,weak,hypotension Acute, or Chronic, or Acute on Chronic? @ -acute Uncomplicated (without systemic symptoms) or Complicated (systemic symptoms)? @ -complicated Side effects of treatment? @ -no Exacerbation, Progression, or Severe Exacerbation] @ -no Poses a threat to life or bodily function? @ -yes (Marshall Lozano) Reevaluation #5: 01/13/23 23:41 Differential Weakness: Hypoglycemia, shock, sepsis, hyponatremia, anemia, infection, CT, ETOH, adverse medicine reaction, overdose, stroke, this is not meant to be an all-inclusive list. Differential Fever: Pneumonia, viral URI, endocarditis, myocarditis, pericarditis, otitis, sinusitis, peritonsillar Abscess, retropharyngeal Abscess, epiglottitis, peritonitis, appendicitis, Belle cystitis, diverticulitis, hepatitis, colitis, UTI, PID, TOA, pyelonephritis, prostatitis, epididymitis, meningitis, encephalitis, pulmonary embolism, CVA, thyroid storm, pancreatitis, adrenal crisis, cavernous sinus thrombosis, this is not meant to be an all-inclusive list. (Marshall Lozano) - Consultations Consultation #1: Spoke with sound who agrees to admit this patient (Marshall Lozano) Medical Decision Making - Lab Data Result diagrams: 01/13/23 19:41 01/13/23 19:41 - Radiology Data Radiology results: report reviewed (Chest x-ray shows bilateral pneumonia), image reviewed <Marshall Lozano - Last Filed: 01/15/23 16:20> - Medical Decision Making 82 female DF for evaluation of weakness dehydration moderate soft blood pressure admitted for significant dehydration and hypotension secondary to coronavirus, patient given adequate hydration and supportive care (Marshall Lozano) - Lab Data Lab Results 01/13/23 01/13/23 01/13/23 Range/Units 19:41 19:41 19:41 WBC 4.7 (3.8-10.6) k/uL RBC 4.24 (3.80-5.40) m/uL Hgb 12.7 (11.4-16.0) gm/dL Hct 37.5 (34.0-46.0) % MCV 88.6 (80.0-100.0) fL MCH 30.0 (25.0-35.0) pg MCHC 33.8 (31.0-37.0) g/dL RDW 15.7 H (11.5-15.5) % Plt Count 193 (150-450) k/uL MPV 7.2 Neutrophils % 76 % Lymphocytes % 13 % Monocytes % 7 % Eosinophils % 0 % Basophils % 0 % Neutrophils # 3.6 (1.3-7.7) k/uL Lymphocytes # 0.6 L (1.0-4.8) k/uL Monocytes # 0.4 (0-1.0) k/uL Eosinophils # 0.0 (0-0.7) k/uL Basophils # 0.0 (0-0.2) k/uL Sodium 129 L (137-145) mmol/L Potassium 4.6 (3.5-5.1) mmol/L Chloride 96 L (98-107) mmol/L Carbon Dioxide 22 (22-30) mmol/L Anion Gap 11 mmol/L BUN 18 H (7-17) mg/dL Creatinine 0.86 (0.52-1.04) mg/dL Est GFR (CKD-EPI)AfAm 74 (>60 ml/min/1.73 sqM) Est GFR (CKD-EPI)NonAf 64 (>60 ml/min/1.73 sqM) Glucose 98 (74-99) mg/dL Calcium 8.6 (8.4-10.2) mg/dL Total Bilirubin 0.5 (0.2-1.3) mg/dL AST 55 H (14-36) U/L ALT 58 H (4-34) U/L Alkaline Phosphatase 65 (38-126) U/L Total Protein 6.5 (6.3-8.2) g/dL Albumin 4.1 (3.5-5.0) g/dL Urine Color Urine Appearance (Clear) Urine pH (5.0-8.0) Ur Specific [place] (1.001-1.035) Urine Protein (Negative) Urine Glucose (UA) (Negative) Urine Ketones (Negative) Urine Blood (Negative) Urine Nitrite (Negative) Urine Bilirubin (Negative) Urine Urobilinogen (<2.0) mg/dL Ur Leukocyte Esterase (Negative) Urine RBC (0-5) /hpf Urine WBC (0-5) /hpf Ur Squamous Epith Cells (0-4) /hpf Urine Mucus (None) /hpf Influenza Type A (PCR) Not Detected (Not Detectd) Influenza Type B (PCR) Not Detected (Not Detectd) RSV (PCR) Not Detected (Not Detectd) SARS-CoV-2 (PCR) Detected A (Not Detectd) 01/13/23 Range/Units 20:48 WBC (3.8-10.6) k/uL RBC (3.80-5.40) m/uL Hgb (11.4-16.0) gm/dL Hct (34.0-46.0) % MCV (80.0-100.0) fL MCH (25.0-35.0) pg MCHC (31.0-37.0) g/dL RDW (11.5-15.5) % Plt Count (150-450) k/uL MPV Neutrophils % % Lymphocytes % % Monocytes % % Eosinophils % % Basophils % % Neutrophils # (1.3-7.7) k/uL Lymphocytes # (1.0-4.8) k/uL Monocytes # (0-1.0) k/uL Eosinophils # (0-0.7) k/uL Basophils # (0-0.2) k/uL Sodium (137-145) mmol/L Potassium (3.5-5.1) mmol/L Chloride (98-107) mmol/L Carbon Dioxide (22-30) mmol/L Anion Gap mmol/L BUN (7-17) mg/dL Creatinine (0.52-1.04) mg/dL Est GFR (CKD-EPI)AfAm (>60 ml/min/1.73 sqM) Est GFR (CKD-EPI)NonAf (>60 ml/min/1.73 sqM) Glucose (74-99) mg/dL Calcium (8.4-10.2) mg/dL Total Bilirubin (0.2-1.3) mg/dL AST (14-36) U/L ALT (4-34) U/L Alkaline Phosphatase (38-126) U/L Total Protein (6.3-8.2) g/dL Albumin (3.5-5.0) g/dL Urine Color Yellow Urine Appearance Clear (Clear) Urine pH 5.5 (5.0-8.0) Ur Specific [place] 1.020 (1.001-1.035) Urine Protein 1+ H (Negative) Urine Glucose (UA) Negative (Negative) Urine Ketones 1+ H (Negative) Urine Blood Negative (Negative) Urine Nitrite Negative (Negative) Urine Bilirubin Negative (Negative) Urine Urobilinogen <2.0 (<2.0) mg/dL Ur Leukocyte Esterase Negative (Negative) Urine RBC 1 (0-5) /hpf Urine WBC 1 (0-5) /hpf Ur Squamous Epith Cells 1 (0-4) /hpf Urine Mucus Rare H (None) /hpf Influenza Type A (PCR) (Not Detectd) Influenza Type B (PCR) (Not Detectd) RSV (PCR) (Not Detectd) SARS-CoV-2 (PCR) (Not Detectd) Disposition <Corazon Kaiser - Last Filed: 01/13/23 17:00> Is patient prescribed a controlled substance at d/c from ED?: No Time of Disposition: 22:25 <Marshall Lozano - Last Filed: 01/15/23 16:20> Clinical Impression: Acute upper respiratory infection, Coronavirus infection, Fever, Dehydration, Weakness Disposition: ADMITTED IP TO THIS HOSP Condition: Stable
--- NOTE | 2023-01-13 18:56 | XR ---
EXAMINATION: XR chest 2V: 01/13/2023 5:50 PM CLINICAL INDICATION: cough TECHNIQUE: Departmental protocol COMPARISON: 08/03/2020 FINDINGS: There is a coarse reticular pattern of increased density throughout the lungs, having the appearance of chronic interstitial lung change, rather than interstitial phase pulmonary edema. In addition ther e are a few scattered ill-defined added opacities bilaterally which are small. Nonspecific, these can correlate with a clinical diagnosis of early infection. The pleural spaces are negative. The cardiac silhouette is not enlarged. The remainder of the mediastinal silhouette is unremarkable. The skeletal structures and soft tissues are negative for acute findings. IMPRESSION: Subtle radiographic findings.
[2023-01-13 20:14] LABS: Basophils % (A) 0 %; Eosinophils % (A) 0 %; HCT 37.5 % (34.0-46.0); HGB 12.7 gm/dL (11.4-16.0); Lymphocytes # (A) 0.6 k/uL (1.0-4.8); Lymphocytes % (A) 13 %; MCHC 33.8 g/dL (31.0-37.0); MCV 88.6 fL (80.0-100.0); Mean Platelet Volume 7.2; Monocytes # (A) 0.4 k/uL (0-1.0); Monocytes % (A) 7 %; Neutrophils # (A) 3.6 k/uL (1.3-7.7); Neutrophils % (A) 76 %; Platelet Count 193 k/uL (150-450); RBC 4.24 m/uL (3.80-5.40); RDW 15.7 % (11.5-15.5); WBC 4.7 k/uL (3.8-10.6)
[2023-01-13 20:30] LABS: Albumin 4.1 g/dL (3.5-5.0); Calcium 8.6 mg/dL (8.4-10.2); Potassium 4.6 mmol/L (3.5-5.1); Total Bilirubin 0.5 mg/dL (0.2-1.3); Total Protein 6.5 g/dL (6.3-8.2)
[2023-01-13 22:15] LABS: Appearance,Urine Clear (Clear); Bilirubin,Urine Negative (Negative); Blood,Urine Negative (Negative); Color,Urine Yellow; Glucose,Urine (UA) Negative (Negative); Ketones,Urine 1+ (Negative); Leukocyte Esterase,Urine Negative (Negative); Mucus,Urine Rare /hpf; Nitrite,Urine Negative (Negative); PH, Urine 5.5 (5.0-8.0); Protein,Urine 1+ (Negative); RBC,Urine 1 /hpf (0-5); Squamous Epithelial Cell,Urine 1 /hpf (0-4); Urobilinogen,Urine <2.0 mg/dL (<2.0); WBC,Urine 1 /hpf (0-5)
[2023-01-13] MEDS ORDERED: ACETAMINOPHEN TAB 325 MG TAB PO PRN (22:38)
[2023-01-13] MEDS ORDERED: ONDANSETRON 4 MG/2 ML VIAL IVP PRN (22:38)
[2023-01-13] MEDS ORDERED: NALOXONE 0.4 MG/ML 1 ML VIAL IV PRN (22:38)
[2023-01-13] MEDS ORDERED: MORPHINE SULFATE 4 MG/ML SYRINGE IV PRN (22:38)
[2023-01-13] MEDS ORDERED: IBUPROFEN 400 MG TAB PO PRN (22:38)
[2023-01-13] MEDS ORDERED: SODIUM CHLORIDE 0.9% 2,000 ML IV STA (22:39)
[2023-01-13] MEDS ORDERED: DEXAMETHASONE SOD PHOSPHATE 10 MG/ML 1 ML VIAL IVP STA (22:43)
[2023-01-14] MEDS ORDERED: DEXAMETHASONE SOD PHOSPHATE 4 MG/ML 1 ML VIAL IVP SCH
[2023-01-14] MEDS: SODIUM CHLORIDE 0.9% 1,000 ML IV SCH ×2 (00:27→01:55)
[2023-01-14 02:02] VITALS: TEMP 98.6
--- NOTE | 2023-01-14 02:38 | P.HPIM ---
History of Present Illness H&P Date: 01/13/23 Chief Complaint: weakness , fatigue , coughing 82 year old female with hypothyroid , hypertension patient was brought in due to progressive symptoms of generalized fatigue and tiredness with upper respiratory symptoms of cough , sore throat and feeling congested over the past 4-5 days , that progressed and worsened , to generalized body aches and difficulty walking today, upon arrival to the ED she was found to be hypotensive and tested positive for COVID , no associated hypoxemia . she denies any recent travel or known sick contact. she is unvaccinated. against covid Review of Systems Pertinent positives as noted in HPI. All other systems were reviewed and are negative Past Medical History Past Medical History: Cancer, Fibromyalgia, GERD/Reflux, Hypertension, Thyroid Disorder Additional Past Medical History / Comment(s): Hx-breast and bladder cancer with chemo. Severe peripheral neuropathy since chemo, environmental allergies, balance issues- USES [employer] , Raynauds disease. 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 Past Anesthesia/Blood Transfusion Reactions: No Reported Reaction Past Psychological History: Anxiety, Depression Smoking Status: Never smoker Past Alcohol Use History: Occasional Additional Past Alcohol Use History / Comment(s): 1 DRINK OF WINE PER NIGHT Past Drug Use History: None Reported - Past Family History Mother Family Medical History: No Reported History Medications and Allergies Home Medications Medication Instructions Recorded Confirmed Type Montelukast [Singulair] 10 mg PO HS 07/11/17 01/13/23 History traMADol HCL [Ultram] 50 mg PO TID PRN 07/11/17 01/13/23 History Pramipexole [Mirapex] 0.25 mg PO HS 04/29/20 01/13/23 History Pantoprazole Sodium [Protonix] 40 mg PO AC-BID 06/17/22 01/13/23 History amLODIPine [Norvasc] 2.5 mg PO DAILY 06/17/22 01/13/23 History Furosemide [Lasix] 20 mg PO DAILY PRN 01/13/23 01/13/23 History HYDROcodone/APAP 5-325MG [[place] 1 tab PO BID PRN 01/13/23 01/13/23 History 5-325] Levothyroxine Sodium [Synthroid] 137 mcg PO DAILY 01/13/23 01/13/23 History busPIRone HCL [Buspar] 7.5 mg PO DAILY 01/13/23 01/13/23 History Allergies Allergy/AdvReac Type Severity Reaction Status Date / Time No Known Allergies Allergy Verified 01/13/23 22:12 Physical Exam Vitals: Vital Signs Temp Pulse Pulse Resp BP BP Pulse Ox 01/14/23 02:00 98.6 F 81 127/72 95 01/14/23 00:09 97.8 F 74 17 164/79 96 01/13/23 23:27 97.9 F 76 17 147/79 96 01/13/23 20:34 98.3 F 85 20 147/82 97 01/13/23 20:28 19 01/13/23 16:42 100.2 F H 85 18 97 Intake and Output 01/13/23 01/13/23 01/14/23 14:59 22:59 06:59 Other: Weight 77.111 kg Constitutional: No acute distress, conversant, pleasant Eyes: Anicteric sclerae, moist conjunctiva, Pupils equal round reactive to light ENMT: NC/AT Oropharynx clear, no erythema, or exudates Neck: Supple, no masses, or JVD No carotid bruits No thyromegaly Lungs: Clear to auscultation Clear to percussion Normal respiratory effort, no accessory muscle use Cardiovascular: Heart regular in rate and rhythm, No murmurs, gallops, or rubs No peripheral edema Abdominal: Soft Nontender, no guarding, rebound or rigidity Abdomen moving with respiration Normoactive bowel sounds No hepatomegaly, No splenomegaly No palpable mass No abdominal wall hernia noted Skin: Normal temperature, tone, texture, turgor No induration No subcutaneous nodules No rash, lesions No ulcers Extremities: No digital cyanosis No clubbing Pedal pulses intact and symmetrical Radial pulses intact and symmetrical No calf tenderness Psychiatric: Alert and oriented to person, place and time Appropriate affect Neuro Muscles Strength 5/5 in all 4 extremities Sensation to light touch grossly present throughout Cranial nerves II-XII grossly intact Lymphatics: no palpable cervical or supraclavicular lymph nodes Results CBC & Chem 7: 01/13/23 19:41 01/13/23 19:41 Labs: Abnormal Lab Results - Last 24 Hours (Table) 01/13/23 01/13/23 01/13/23 Range/Units 19:41 19:41 19:41 RDW 15.7 H (11.5-15.5) % Lymphocytes # 0.6 L (1.0-4.8) k/uL Sodium 129 L (137-145) mmol/L Chloride 96 L (98-107) mmol/L BUN 18 H (7-17) mg/dL AST 55 H (14-36) U/L ALT 58 H (4-34) U/L Urine Protein (Negative) Urine Ketones (Negative) Urine Mucus (None) /hpf SARS-CoV-2 (PCR) Detected A (Not Detectd) 01/13/23 Range/Units 20:48 RDW (11.5-15.5) % Lymphocytes # (1.0-4.8) k/uL Sodium (137-145) mmol/L Chloride (98-107) mmol/L BUN (7-17) mg/dL AST (14-36) U/L ALT (4-34) U/L Urine Protein 1+ H (Negative) Urine Ketones 1+ H (Negative) Urine Mucus Rare H (None) /hpf SARS-CoV-2 (PCR) (Not Detectd) Thrombosis Risk Factor Assmnt - Choose All That Apply Any of the Below Risk Factors Present?: Yes Each Risk Factor Represents 3 Points: Age 75 years or older Thrombosis Risk Factor Assessment Total Risk Factor Score: 3 Thrombosis Risk Factor Assessment Level: Moderate Risk Assessment and Plan Assessment: 82 year old female with hypothyroid and hypertension, coming in with URI symptoms of 4-5 days, I discussed the case with ED doc, she tested positive for COVID and was hypotensive. I accepted the admission under observation for monitoring for 24-48 hours and supportive care. COVID positive hypotension patient received IVF hydration in the ED , blood pressure improved will hold amlodipine and monitor blood pressure patient given dexamethasone in the ED, will discontinue as the patient is not hypoxic and not requiring supplemental oxygen droplet and air born precautions supportive care tylenol for fever check procalcitonin tessalon pearls for cough PRN hypothyroid , chronic continue levothyroxine full code DVT PPX lovenox sc 40 mg daily
[2023-01-14] MEDS ORDERED: BENZONATATE 100 MG CAP PO PRN (02:41)
[2023-01-14] MEDS ORDERED: BENZOCAINE/MENTHOL LOZENG 1 EACH LOZENGE MUCOUS MEM PRN (02:41)
[2023-01-14] MEDS ORDERED: LEVOTHYROXINE 137 MCG TAB PO SCH (06:30)
[2023-01-14] MEDS ORDERED: PANTOPRAZOLE 40 MG TABLET PO SCH (07:30)
[2023-01-14 07:47] VITALS: BP 147/77; PULSE 67; RESP 15
[2023-01-14] MEDS ORDERED: Phenol 1.4% Sore Throat Spray Bottle MUCOUS MEM PRN (09:55)
--- NOTE | 2023-01-14 19:19 | P.DS ---
Providers Date of admission: 01/13/23 22:39 Expected date of discharge: 01/14/23 Attending physician: Luis Joiner MD Consults: 01/13/23 22:38 Consult Physician Routine Consulting Provider: Alejo Field Consult Reason/Comments: covid Do you want consulting provider notified?: Yes Primary care physician: [facility] Course: Discharge Diagnosis: Covid infection, patient reports only symptom being sore throat. History of breast cancer status post lumpectomy followed by chemotherapy Hypertension, blood pressures stable throughout hospitalization on current medication regimen. Hypothyroidism Fibromyalgia GERD Hospital Course: Patient is a very pleasant 82-year-old female with a past medical history of breast cancer status post lumpectomy followed by chemotherapy, hypertension, hypothyroidism, fibromyalgia, disease, and GERD. She presented to the emergency department with a chief complaint of generalized body aches resulting in weakness, accompanied by extreme fatigue, sore throat and coughing. This reportedly began approximately 4-5 days ago and progressively worsened. Patient underwent full evaluation in the emergency department. Labs completed and reviewed. CBC unremarkable. BMP revealing hypochloremic hyponatremia with sodium 129 and chloride of 96. Liver profile revealing slightly elevated liver enzymes with AST of 55 ALT of 58. Urinalysis was negative for infection. Influenza A and influenza B, and RSV were negative. Covid PCR was positive. Chest x-ray completed in radiology report reviewed showing coarse reticular pattern of increased density throughout the lungs with a few scattered ill- defined opacities bilaterally concerning for clinicals signs of early infection. Patient was admitted under our services. She was monitored overnight patient ambulatory in room without any difficulties maintaining SpO2 on room air 97% without any difficulties. Patient denies having any shortness of breath, chest pain, palpitations. Patient's only complaint is sore throat at this time. Consult canceled to pulmonology and patient medically stable for discharge home at this time. No medication changes made at this time. Patient to follow up outpatient with her PCP in 1 week. Patient seen and examined at bedside. Vital signs reviewed and stable. General: Nontoxic, no distress and appears stated age. Derm: Skin warm and dry, normal coloration for ethnicity. Head: Atraumatic, normocephalic and symmetric. Eyes: EOMs intact, no lid lag, and anicteric sclera Mouth: no lip lesions, mucus membranes moist Cardiovascular: regular rate and rhythm with normal S1S2, no murmur, positive posterior tibial pulses bilaterally, and cap refill < 2 seconds. Lungs: Respirations even, regular, and unlabored on room air. Lungs CTA bilaterally, no rhonchi, no rales, no wheezing, and no accessory muscle usage. Abdominal: soft, nontender to palpation, no guarding, no appreciable organomegaly Ext: ROM intact. No gross muscle atrophy, no edema, no contractures Neuro: Speech clear, face symmetrical and CN II-XII grossly intact with no noted focal neuro deficits Psych: Alert and oriented to person, place, time, and situation. Appropriate and pleasant affect. A total of 32 minutes of time were spent preparing this complex discharge summary. Pt was discharged on 01/14/23 at 9:52 AM Patient was seen independently by Nurse Practitioner. This document was prepared using [employer] dictation software. Please allow for errors in roll threader operator while rare they do occur. Patient Condition at Discharge: Stable Plan - Discharge Summary Discharge Rx Participant: Yes New Discharge Prescriptions: Continue traMADol HCL [Ultram] 50 mg PO TID PRN PRN Reason: Pain Montelukast [Singulair] 10 mg PO HS Pramipexole [Mirapex] 0.25 mg PO HS Pantoprazole Sodium [Protonix] 40 mg PO AC-BID amLODIPine [Norvasc] 2.5 mg PO DAILY Furosemide [Lasix] 20 mg PO DAILY PRN PRN Reason: Edema Levothyroxine Sodium [Synthroid] 137 mcg PO DAILY busPIRone HCL [Buspar] 7.5 mg PO DAILY HYDROcodone/APAP 5-325MG [[place] 5-325] 1 tab PO BID PRN PRN Reason: Pain Discharge Medication List Montelukast [Singulair] 10 mg PO HS 07/11/17 [History] traMADol HCL [Ultram] 50 mg PO TID PRN 07/11/17 [History] Pramipexole [Mirapex] 0.25 mg PO HS 04/29/20 [History] Pantoprazole Sodium [Protonix] 40 mg PO AC-BID 06/17/22 [History] amLODIPine [Norvasc] 2.5 mg PO DAILY 06/17/22 [History] Furosemide [Lasix] 20 mg PO DAILY PRN 01/13/23 [History] HYDROcodone/APAP 5-325MG [[place] 5-325] 1 tab PO BID PRN 01/13/23 [History] Levothyroxine Sodium [Synthroid] 137 mcg PO DAILY 01/13/23 [History] busPIRone HCL [Buspar] 7.5 mg PO DAILY 01/13/23 [History] Follow up Appointment(s)/Referral(s): Princess Lackey MD [Primary Care Provider] - 01/19/23 11:15 am Patient Instructions/Handouts: Coronavirus Disease 2019 (COVID-19), COVID-19 (Coronavirus Disease 2019) (DC), How to Recover from COVID-19 at Home (GEN), Social Distancing Guidelines for COVID-19 (DC) Discharge Disposition: HOME SELF-CARE
[2023-01-14] MEDS ORDERED: MONTELUKAST 10 MG TAB PO SCH (21:00)
== END 2023-01-14 13:33 | disposition home or self-care (01) | DRG 178 ==
LOC: EC 16:33 → 4SSUR 22:39
PROVIDERS: ADMIT Internal Medicine; ATTEND Internal Medicine
DX: U07.1 COVID-19 (principal); E87.1 Hypo-osmolality and hyponatremia; M79.7 Fibromyalgia; K21.9 Gastro-esophageal reflux disease without esophagitis; G62.9 Polyneuropathy, unspecified; J30.2 Other seasonal allergic rhinitis; F32.A Depression, unspecified; F41.9 Anxiety disorder, unspecified; I10 Essential (primary) hypertension; E87.8 Other disorders of electrolyte and fluid balance, not elsewhere classified; E86.0 Dehydration; I95.9 Hypotension, unspecified; E03.9 Hypothyroidism, unspecified; Z79.890 Hormone replacement therapy; Z79.899 Other long term (current) drug therapy; Z85.3 Personal history of malignant neoplasm of breast; Z85.51 Personal history of malignant neoplasm of bladder; Z90.710 Acquired absence of both cervix and uterus; Z96.641 Presence of right artificial hip joint; Z96.652 Presence of left artificial knee joint; Z20.822 Contact with and (suspected) exposure to COVID-19; Z92.21 Personal history of antineoplastic chemotherapy; J06.9 Acute upper respiratory infection, unspecified; Z87.19 Personal history of other diseases of the digestive system
CPT/HCPCS: 36415; 71046; 80053; 81001; 84145; 85025; 87636; 96374; 99285